=== PATIENT | male | born 1945 | race Caucasian/White ===

== ENCOUNTER 2024-07-11 07:04 | Observation (INO) ==
--- NOTE | 2024-07-11 07:28 | Emergency Department Note ---
Impression & Plan Syncope, Head injury, Cervical strain, acute, Acute thoracic myofascial strain ED Provider Note NAME: JANET CHAVIS AGE: 79 SEX: M : 1945 ARRIVES VIA: Ambulance INFORMANT: Patient, ED PROVIDER(S): Flaquito Slaughter DO CHIEF COMPLAINT: Syncope HPI: The patient is an 79-year-old male who presents to the emergency department for an evaluation of syncope. The patient states he was urinating when he had a syncopal episode. The patient states he fell. He thinks he struck his head and his neck. He is complaining of some upper back pain as well. The patient denies having any nausea or vomiting. He denies having any chest pain. He was having some lower back pain last evening. He has a history of this in the past and took some oxycodone. He did not drink any alcohol. The patient states he just feels weak at this time. He denies having any unilateral weakness ROS: See above HPI for pertinent positives & negatives. A total of 10 systems reviewed and were otherwise negative. PAST MEDICAL HISTORY: See Below PAST SURGICAL HISTORY: See Below FAMILY HISTORY: See Below SOCIAL HISTORY: See Below HOME MEDICATIONS: See Below ALLERGIES: See Below VITALS: See Below PHYSICAL EXAMINATION: GENERAL: Patient is awake alert in no acute distress patient is resting comfortably and showing no signs of anxiety EYES: The conjunctivae are clear. The pupils are round and reactive. EARS, NOSE, MOUTH AND THROAT: The nose is without any evidence of any deformity. NECK: Upper cervical spine tenderness was noted to palpation. Range of motion appears intact. RESPIRATORY: Normal respiratory effort is noted there is no evidence of wheezing rhonchi or rales CARDIOVASCULAR: Regular rate and rhythm noted there no murmurs rubs or gallops normal S1 normal S2. GASTROINTESTINAL: The abdomen is soft. Abdomen is nontender. BACK: The patient has upper thoracic spine tenderness to palpation. Range of motion does appear intact. MUSCULOSKELETAL/EXTREMITIES: There is no evidence of gross deformity full range of motion is noted in the hips and shoulders. SKIN: There is no obvious evidence of any rash. There are no petechiae, pallor or cyanosis noted. NEUROLOGIC: Patient is awake alert and oriented x3 strength was symmetric in both lower extremities. MEDICAL DECISION MAKING: The patient is an 79-year-old male who presented to the emergency department for an evaluation of syncope. The patient had a syncopal episode today. The patient was awake and alert. He is neurologically intact upon arrival. He did have some pain but it appeared to be more consistent with a fall not necessarily other cause. The patient has a history of a dilated aortic root. It was not to the measurement that would need surgical but it could be becoming symptomatic with the patient especially given his syncopal episode. He was up late last night watching a football game. This did occur during micturition. I discussed the patient's laboratory and radiographic studies with him and his significant other. I discussed some of the possible causes for syncope. I do feel the patient would require an echocardiogram. I discussed the possibility that they may have this as an outpatient but ultimately they were not comfortable being discharged home. He did have some changes on his chest x-ray which may make him higher risk for outpatient workup for this reason I discussed his condition with the on-call [facility] hospitalist. Triage Nursing notes reviewed. Prior medical records reviewed Vital Signs: reviewed and remarkable for no significant abnormalities Differential diagnosis: Vasovagal event, dehydration, infection, hypoglycemia, electrolyte abnormalities, cardiac sources, intracerebral event, pulmonary embolism, seizure, toxicologic, neurologic, as well as other pathologies. ER treatment provided: See below Diagnostics interpreted by me: ECG: EKG was obtained in the emergency department. My interpretation is sinus bradycardia with first-degree AV block at 55 bpm. There is no ectopy. There is no acute ST segment abnormalities noted. This was compared to a tracing from March 12, 2016. No changes were noted. Cardiac Monitoring: An order was placed for continuous cardiac monitoring. The monitor shows a rate of 60 bpm with sinus rhythm. Laboratory studies: As stated above and show below. Imaging studies: See below. Radiographic imaging was reviewed by myself Consultation(s): [facility]. Past Med/Surg History Problem List (Updated 07/11/24 @ 12:53 by Flaquito Slaughter DO) Acute thoracic myofascial strain (Acute) Cervical strain, acute (Acute) Head injury (Acute) Syncope (Acute) Postlaminectomy syndrome of lumbar region Hip bursitis, left IT band syndrome Right knee DJD Medical History Spinal cord stimulator status HTN (hypertension) Per [facility] cardio records Dyslipidemia Ascending aortic aneurysm CT chest 03/2024: Aneurysmal dilatation of the thoracic aorta, 4.8 cm Follows with [facility] cardio Prostate cancer Dx 2002, s/p prostatectomy, XRT 2007 Surgical History S/P insertion of brain-responsive neurostimulation device SCS 2020 History of esophagogastroduodenoscopy (EGD) Hx of colonoscopy History of total left knee replacement 2009 S/P prostatectomy Social History Smoking Status: Former smoker Tobacco Type: Cigarettes Second Hand Exposure: No; Do You Dip or Chew Tobacco: No; Hx Alcohol Use: Yes Hx Substance Use: No Preferred Language: Kyrgyz Communication Ability: Effective Pie Maker Required: No Beliefs That Will Affect Care: None Current Living Situation: Spouse Feels Safe at Home: Yes Assistive Devices: Denture - Upper, Denture - Lower and Glasses Allergies Allergies Allergy/AdvReac Type Severity Reaction Status Date / Time Penicillins Allergy Mild Hives Verified 07/11/24 08:38 Home Meds Home Medications Medication Instructions Recorded Confirmed coenzyme Q10 100 mg capsule 100 mg PO QAM 06/02/19 07/11/24 (CoQ-10) losartan 25 mg tablet 25 mg PO QAM 06/02/19 07/11/24 magnesium 200 mg tablet 200 mg PO HS 09/01/19 07/11/24 metoprolol succinate 25 mg capsule 12.5 mg PO QAM 09/01/19 07/11/24 sprinkle, ext. release 24 hr aspirin 81 mg capsule 81 mg PO QAM 04/18/24 07/11/24 calcium 600 mg (as 2 tab PO QPM 04/18/24 07/11/24 carbonate)-vitamin D3 5 mcg (200 unit) tablet lactobacillus combination no.4 3 3,000 mmu cells PO DAILY ##0 04/18/24 07/11/24 billion cell capsule (Probiotic) rosuvastatin 10 mg tablet 10 mg PO HS 04/18/24 07/11/24 oxycodone-acetaminophen 5 mg-325 1 tab PO Q6H PRN Pain 07/11/24 07/11/24 mg tablet Results & Data (ED) Vital Signs Vital Signs - 24 hr 07/11/24 07:08 07/11/24 07:08 07/11/24 07:13 Temperature 36.6 C Temperature Source Oral Pulse Rate 55 L 55 L 54 L Pulse Rhythm Regular Regular Pulse Strength Normal Respiratory Rate 14 14 14 Respiratory Effort / Characteristics Non-Labored Respiratory Depth Normal Respiratory Pattern Regular Blood Pressure 156/75 H 156/75 H Blood Pressure Mean 102 102 Pulse Oximetry 100 100 100 Oxygen Delivery Method Room Air Room Air Room Air Sepsis Recent Fever Within 48 Hours No Sepsis New/Unexplained Change in Mental Status N/A Sepsis Action Taken by Nursing No Action Required 07/11/24 07:25 07/11/24 08:03 07/11/24 08:18 Temperature Temperature Source Pulse Rate 54 L 62 56 L Pulse Rhythm Regular Pulse Strength Respiratory Rate 14 18 Respiratory Effort / Characteristics Respiratory Depth Respiratory Pattern Blood Pressure 141/77 H Blood Pressure Mean 109 Pulse Oximetry 99 96 Oxygen Delivery Method Room Air Sepsis Recent Fever Within 48 Hours Sepsis New/Unexplained Change in Mental Status Sepsis Action Taken by Nursing 07/11/24 09:30 07/11/24 10:02 Temperature Temperature Source Pulse Rate 55 L 60 Pulse Rhythm Pulse Strength Respiratory Rate 12 18 Respiratory Effort / Characteristics Respiratory Depth Respiratory Pattern Blood Pressure 127/73 140/86 Blood Pressure Mean 112 112 Pulse Oximetry 96 96 Oxygen Delivery Method Sepsis Recent Fever Within 48 Hours Sepsis New/Unexplained Change in Mental Status Sepsis Action Taken by [facility] Medications Current Medication List: was personally reviewed by me Laboratory Data Attestation: I reviewed the patient's lab results. 07/11/24 07:20 07/11/24 07:20 Lab Results 07/11/24 07/11/24 Range/Units 07:20 08:51 WBC 5.48 (4.8-10.8) K/ul RBC 4.41 L (4.70-6.10) M/uL Hgb 13.1 L (14.0-18.0) g/dl Hct 38.6 L (42.0-52.0) % MCV 87.5 (80.0-100.0) fL MCH 29.7 (25.0-34.0) pg MCHC 33.9 (32.0-36.0) g/dL RDW Std Deviation 41.2 (36.4-46.3) fL RDW Coeff of Toro 12.8 (11.5-14.5) % Plt Count 229 (130-400) K/uL MPV 8.9 L (9.4-12.4) fL Immature Gran % (Auto) 0.4 % Neut % (Auto) 50.5 % Lymph % (Auto) 36.3 % [place] % (Auto) 9.9 % Eos % (Auto) 2.0 % Baso % (Auto) 0.9 % Neut # (Auto) 2.77 (1.40-6.50) K/uL Lymph # (Auto) 1.99 (1.20-3.40) K/uL [place] # (Auto) 0.54 (0.11-0.59) K/uL Eos # (Auto) 0.11 (0.00-0.50) K/uL Baso # (Auto) 0.05 (0.00-0.20) K/uL Immature Gran # (Auto) 0.02 (0.01-0.20) K/uL PT 11.0 (9.0-12.0) Seconds INR 1.0 (0.9-1.1) APTT 25 (21-31) Seconds PTT Ratio 0.9 Sodium 140 (136-145) mmol/L Potassium 3.8 (3.5-5.1) mmol/L Chloride 105 (98-107) mmol/L Carbon Dioxide 28 (21-32) mmol/L Anion Gap 7 (3-11) BUN 18 (6-23) mg/dl Creatinine 0.94 (0.6-1.4) mg/dl Est Cr Clr Drug Dosing 74.2 ml/min eGFR 81.95 BUN/Creatinine Ratio 19.1 (10-20) Glucose 103 H (70-99(Fasting)) mg/dl Calcium 9.3 (8.6-10.3) mg/dl Magnesium 2.1 (1.7-2.4) mg/dl Total Bilirubin 0.5 (0.2-1.0) mg/dl AST 16 (13-39) U/L ALT 10 (7-52) U/L Alkaline Phosphatase 58 (34-104) U/L Troponin I High Sens 4.2 (0-20) pg/ml Total Protein 6.9 (6.0-8.3) gm/dl Albumin 4.3 (3.4-5.0) gm/dl Globulin 2.6 (2.5-4.0) gm/dl Albumin/Globulin Ratio 1.7 (0.9-2) Urine Color Yellow Urine Appearance Clear (Clear) Urine pH 7.5 (4.5-7.5) Ur Specific Mccarr 1.008 (1.000-1.030) Urine Protein Negative (Negative) Urine Glucose (UA) Negative (Negative) Urine Ketones Negative (Negative) Urine Blood Negative (Negative) Urine Nitrite Negative (Negative) Urine Bilirubin Negative (Negative) Urine Urobilinogen Negative (Negative) Ur Leukocyte Esterase Negative (Negative) Imaging Data Attestation: I personally reviewed and interpreted this imaging study as follows: My Impression: CT the brain was obtained in the emergency department. My interpretation is no intracranial hemorrhage or mass effect, final report below. 1 view chest x-ray was obtained in the emergency department. My interpretation is no free air or definite filtrate, final report below. Radiologist's Impression: Cervical Spine CT 07/11/24 07:19 CT OF THE CERVICAL SPINE WITHOUT CONTRAST CLINICAL HISTORY: fall COMPARISON STUDY: Cervical spine CT September 14, 2020. TECHNIQUE: Helical axial images of the cervical spine were obtained without IV contrast. Sagittal and coronal reconstructions were viewed. Automated exposure control was utilized for the study. A dose lowering technique was utilized adhering to the principles of ALARA. FINDINGS: Alignment of the cervical spine is anatomic. Vertebral body heights are maintained. No acute cervical spine fracture or subluxation is present. There is no prevertebral edema. Facet joints are intact. The inferior aspect of C7 is not well-visualized on this exam but is visualized on the thoracic spine CT. There is no fracture within the thoracic spine. Moderate multilevel disc space narrowing, endplate osteophytosis and facet arthrosis is present. There are moderate degenerative changes at the C1-C2 articulation. IMPRESSION: No acute cervical spine fracture or subluxation. ACT 112: Negative or not required by law. Electronically signed by: Pro Steele M.D. 07/11/2024 8:27 AM Chest X-Ray 07/11/24 07:19 EXAM: XR chest 1V portable CLINICAL HISTORY: FALL-RIGHT SHOULDER PAIN JMT TECHNIQUE: An X-ray image of the chest is obtained in AP projection. COMPARISON: No prior studies are available for comparison. FINDINGS: Pulmonary Parenchyma: Slight prominence of bronchovascular markings was noted bilaterally. Findings could be related to mild pulmonary congestion. No focal consolidation. No evidence of pleural effusion or pneumothorax. Heart and Mediastinum: Borderline cardiomegaly. No mediastinal widening or masses. No hilar or mediastinal lymphadenopathy. Bony Thorax: The bony thorax appears intact without acute fractures or deformities. Soft Tissues: Soft tissues overlying the chest wall are unremarkable. A thoracic spinal stimulator was observed. IMPRESSION: 1. Slight prominence of bronchovascular markings was noted bilaterally. Findings could be related to mild pulmonary congestion. Would recommend clinical correlation. 2. Borderline cardiomegaly. Electronically signed by Luis A Ch 07-11-2024 08:[address] 07/11/24 07:19 CT head/brain wo con CLINICAL HISTORY: syncope. TECHNIQUE: Multiple axial CT images of the head were obtained without contrast. A dose lowering technique was utilized adhering to the principles of ALARA. COMPARISON: 09/14/2020 FINDINGS: There are stable mild globus pallidus calcifications, unremarkable in this age group. No intracranial hemorrhage seen. No mass effect, midline shift, or hydrocephalus. No skull fracture seen. Visualized paranasal sinuses and mastoid air cells are clear. IMPRESSION: No acute findings. ACT 112: Negative or not required by law. The above report was generated using voice recognition software. It may contain grammatical, syntax or spelling errors. Electronically signed by: Tex Suarez M.D. 07/11/2024 8:27 AM Shoulder X-Ray 07/11/24 07:19 EXAM: XR shoulder RT min 2V routine CLINICAL HISTORY: FALL-RIGHT SHOULDER PAIN JMT TECHNIQUE: X-ray images of the right shoulder were obtained in anteroposterior (AP) and Y-view projections. COMPARISON: No prior studies available for comparison. FINDINGS: Bone Structure: Reduced mineralization of the imaged bony structures seen suggests osteopenia. Focal calcific density seen near the greater tuberosity of the humerus likely suggests calcific tendinitis of the supraspinatus tendon, avulsion fracture fragment appears less likely. Bone structure is normal and aligned. No evidence of fracture or dislocation. Humeral head is properly positioned in the glenoid fossa. No convincing rib fracture seen Joint Spaces: Tiny marginal osteophytes seen at the glenoid or scapula with patchy sclerosis at the superior lateral surface of head of humerus, overall represents mild degenerative changes. Glenohumeral spaces are normal. No evidence of joint effusion or subluxation. Small marginal osteophyte seen at the acromioclavicular joint suggesting Acromioclavicular arthropathy within adjacent ossific body, avulsed fracture fragment less likely. Soft Tissues: No soft tissue swelling seen. IMPRESSION: 1. Glenohumeral and acromioclavicular arthropathy/degenerative changes seen, as described above. 2. No acutely displaced fracture noted. 3. Supraspinatus calcific tendinitis and acromioclavicular degenerative loose body seen, avulsed fracture fragments at these sites appear unlikely. 4. Osteopenia. 5. Clinical correlation advised, further evaluation by CT scan/MRI right shoulder may be obtained if clinically indicated. Disclaimer: A subtle bone abnormality or fracture may not be readily apparent on X-rays, thus clinical correlation and further imaging including follow-up CT, MRI, or follow-up X-rays are advised as needed. Electronically signed by Luis A Ch 07-11-2024 08:[address] 07/11/24 07:22 CT thoracic spine wo con HISTORY: 79 years-old Male fall acute mid back pain status post fall COMPARISON: Chest radiograph of same day, MRI thoracic spine 12/11/2012 TECHNIQUE: Multiple axial CT images of the thoracic spine were obtained without IV contrast. A dose lowering technique was used consistent with the principals of ALARA. FINDINGS: [id number] multilevel intervertebral disc space narrowing with moderate anterior bridging osteophytosis and [id number] facet arthrosis. Partially imaged neurostimulator leads appear intact and are seen entering the central canal at T8-T9 with distal tip terminating at T6-T7. No acute fracture, subluxation or endplate erosion. Suboptimal evaluation of the central canal and neural foramen by CT technique. No high-grade central canal stenosis identified. No paravertebral edema. Nonobstructing right nephrolithiasis. Cardiomegaly with extensive coronary artery calcifications. The imaged lung morris are generally clear. Mild pleural parenchymal scarring of the lung apices. Mild pulmonary emphysema with bronchial wall thickening. Mild fusiform dilation of the ascending thoracic aorta measures up to 4 cm. IMPRESSION: No acute thoracic spine fracture or subluxation identified. ACT 112: Negative or not required by law. The above report was generated using voice recognition software. It may contain grammatical, syntax or spelling errors. Electronically signed by: Satish Christianson M.D. 07/11/2024 8:41 AM Discharge Plan Visit Data Chief Complaint: Syncope (Near Syncope) Stated Complaint: NEAR SYNCOPE, WEAKNESS, DIZZINESS ED Provider: Flaquito Slaughter Discharge Problem: Syncope, Head injury, Cervical strain, acute, Acute thoracic myofascial strain Patient Disposition: Being Evaluated by Hospitalist Forms Stand Alone Forms: [facility] Prescriptions Prescriptions: No Action metoprolol succinate 25 mg capsule,sprinkle,ER 24hr 12.5 mg PO QAM magnesium 200 mg tablet 200 mg PO HS losartan 25 mg tablet 25 mg PO QAM coenzyme Q10 [CoQ-10] 100 mg capsule 100 mg PO QAM calcium carbonate-vitamin D3 600 mg-5 mcg (200 unit) Tablet 2 tab PO QPM Patient Comments: @noon rosuvastatin 10 mg Tablet 10 mg PO HS Probiotic 3 billion cell Capsule 3,000 mmu cells PO DAILY Qty: 0 Rx Instructions: administer with a meal aspirin 81 mg Capsule 81 mg PO QAM oxycodone-acetaminophen 5-325 mg tablet 1 tab PO Q6H PRN (Reason: Pain) Referrals Referrals: Guido Anne DO [Primary Care Provider] - Discharge Problem: Syncope Qualifiers: Syncope type: unspecified Qualified Code(s): R55 - Syncope and collapse Head injury Qualifiers: Encounter type: initial encounter Qualified Code(s): S09.90XA - Unspecified injury of head, initial encounter Cervical strain, acute Qualifiers: Encounter type: initial encounter Qualified Code(s): S16.1XXA - Strain of muscle, fascia and tendon at neck level, initial encounter Acute thoracic myofascial strain Qualifiers: Encounter type: initial encounter Qualified Code(s): S29.019A - Strain of muscle and tendon of unspecified wall of thorax, initial encounter
[2024-07-11 07:57] LABS: Basophils # (auto) 0.05 K/uL (0.00-0.20); Basophils % (auto) 0.9 %; Eosinophils # (auto) 0.11 K/uL (0.00-0.50); Hematocrit (blood only) 38.6 % (42.0-52.0); Hemoglobin 13.1 g/dl (14.0-18.0); Immature Granulocytes # (auto) 0.02 K/uL (0.01-0.20); Immature Granulocytes % (auto) 0.4 %; Lymphocytes # (auto) 1.99 K/uL (1.20-3.40); Lymphocytes % (auto) 36.3 %; Mean Corpuscular Hemoglobin 29.7 pg (25.0-34.0); Mean Corpuscular Hgb Conc 33.9 g/dL (32.0-36.0); Mean Corpuscular Volume 87.5 fL (80.0-100.0); Mean Platelet Volume 8.9 fL (9.4-12.4); Monocytes # (auto) 0.54 K/uL (0.11-0.59); Monocytes % (auto) 9.9 %; Neutrophils # (auto) 2.77 K/uL (1.40-6.50); Neutrophils % (auto) 50.5 %; Platelet Count 229 K/uL (130-400); RDW Coefficient of Variation 12.8 % (11.5-14.5); RDW Standard Deviation 41.2 fL (36.4-46.3); Red Blood Count 4.41 M/uL (4.70-6.10); White Blood Count 5.48 K/ul (4.8-10.8)
[2024-07-11 08:03] LABS: Albumin Globulin Ratio 1.7 (0.9-2); Albumin Level 4.3 gm/dl (3.4-5.0); BUN Creatinine Ratio 19.1 (10-20); Bilirubin,Total 0.5 mg/dl (0.2-1.0); Calcium 9.3 mg/dl (8.6-10.3); Creatinine Clr Calc Pharmacy 74.2 ml/min; Globulin 2.6 gm/dl (2.5-4.0); Magnesium 2.1 mg/dl (1.7-2.4); Potassium 3.8 mmol/L (3.5-5.1); Total Protein 6.9 gm/dl (6.0-8.3)
[2024-07-11 08:08] LABS: Troponin I High Sensitivity 4.2 pg/ml (0-20)
[2024-07-11 08:18] LABS: Partial Thromboplastin Ratio 0.9; Partial Thromboplastin Time 25 Seconds (21-31)
--- NOTE | 2024-07-11 08:28 | CT Scan Report ---
CT head/brain wo con CLINICAL HISTORY: syncope. TECHNIQUE: Multiple axial CT images of the head were obtained without contrast. A dose lowering tech nique was utilized adhering to the principles of ALARA. COMPARISON: 09/14/2020 FINDINGS: There are stable mild globus pallidus calcifications, unremarkable in this age group. No in tracranial hemorrhage seen. No mass effect, midline shift, or hydrocephalus. No skull fracture seen. Visualized paranasal sinuses and mastoid air cells are clear. IMPRESSION: No acute findings. ACT 112: Negative or not required by law. The above report was generated using voice recognition software. It may contain grammatical, syntax o r spelling errors. Electronically signed by: Tex Suarez M.D. 07/11/2024 8:27 AM
--- NOTE | 2024-07-11 08:28 | CT Scan Report ---
CT OF THE CERVICAL SPINE WITHOUT CONTRAST CLINICAL HISTORY: fall COMPARISON STUDY: Cervical spine CT September 14, 2020. TECHNIQUE: Helical axial images of the cervical spine were obtained without IV contrast. Sagittal a nd coronal reconstructions were viewed. Automated exposure control was utilized for the study. A do se lowering technique was utilized adhering to the principles of ALARA. FINDINGS: Alignment of the cervical spine is anatomic. Vertebral body heights are maintained. No acut e cervical spine fracture or subluxation is present. There is no prevertebral edema. Facet joints are intact. The inferior aspect of C7 is not well-visualized on this exam but is visualized on the [facility] spine CT. There is no fracture within the thoracic spine. Moderate multilevel disc space narrowin g, endplate osteophytosis and facet arthrosis is present. There are moderate degenerative changes at the C1-C2 articulation. IMPRESSION: No acute cervical spine fracture or subluxation. ACT 112: Negative or not required by law. Electronically signed by: Pro Steele M.D. 07/11/2024 8:27 AM
--- NOTE | 2024-07-11 08:31 | XRay Report ---
EXAM: XR chest 1V portable CLINICAL HISTORY: FALL-RIGHT SHOULDER PAIN JMT TECHNIQUE: An X-ray image of the chest is obtained in AP projection. COMPARISON: No prior studies are available for comparison. FINDINGS: Pulmonary Parenchyma: Slight prominence of bronchovascular markings was noted bilaterally. Findings could be related to mild pulmonary congestion. No focal consolidation. No evidence of pleural effusion or pneumothorax. Heart and Mediastinum: Borderline cardiomegaly. No mediastinal widening or masses. No hilar or mediastinal lymphadenopathy. Bony Thorax: The bony thorax appears intact without acute fractures or deformities. Soft Tissues: Soft tissues overlying the chest wall are unremarkable. A thoracic spinal stimulator was observed. IMPRESSION: 1. Slight prominence of bronchovascular markings was noted bilaterally. Findings could be related to mild pulmonary congestion. Would recommend clinical correlation. 2. Borderline cardiomegaly. Electronically signed by Luis A Ch 07-11-2024 08:30 AM
--- NOTE | 2024-07-11 08:32 | XRay Report ---
EXAM: XR shoulder RT min 2V routine CLINICAL HISTORY: FALL-RIGHT SHOULDER PAIN JMT TECHNIQUE: X-ray images of the right shoulder were obtained in anteroposterior (AP) and Y-view projections. COMPARISON: No prior studies available for comparison. FINDINGS: Bone Structure: Reduced mineralization of the imaged bony structures seen suggests osteopenia. Focal calcific density seen near the greater tuberosity of the humerus likely suggests calcific tendinitis of the supraspinatus tendon, avulsion fracture fragment appears less likely. Bone structure is normal and aligned. No evidence of fracture or dislocation. Humeral head is properly positioned in the glenoid fossa. No convincing rib fracture seen Joint Spaces: Tiny marginal osteophytes seen at the glenoid or scapula with patchy sclerosis at the superior lateral surface of head of humerus, overall represents mild degenerative changes. Glenohumeral spaces are normal. No evidence of joint effusion or subluxation. Small marginal osteophyte seen at the acromioclavicular joint suggesting Acromioclavicular arthropathy within adjacent ossific body, avulsed fracture fragment less likely. Soft Tissues: No soft tissue swelling seen. IMPRESSION: 1. Glenohumeral and acromioclavicular arthropathy/degenerative changes seen, as described above. 2. No acutely displaced fracture noted. 3. Supraspinatus calcific tendinitis and acromioclavicular degenerative loose body seen, avulsed fracture fragments at these sites appear unlikely. 4. Osteopenia. 5. Clinical correlation advised, further evaluation by CT scan/MRI right shoulder may be obtained if clinically indicated. Disclaimer: A subtle bone abnormality or fracture may not be readily apparent on X-rays, thus clinical correlation and further imaging including follow-up CT, MRI, or follow-up X-rays are advised as needed. Electronically signed by Luis A Ch 07-11-2024 08:31 AM
--- NOTE | 2024-07-11 08:42 | CT Scan Report ---
CT thoracic spine wo con HISTORY: 79 years-old Male fall acute mid back pain status post fall COMPARISON: Chest radiograph of same day, MRI thoracic spine 12/11/2012 TECHNIQUE: Multiple axial CT images of the thoracic spine were obtained without IV contrast. A dose l owering technique was used consistent with the principals of VIKASH. FINDINGS: Hfta-pd-bhhdverf multilevel intervertebral disc space narrowing with moderate anterior bridging osteo phytosis and twwh-sl-tbwquccu facet arthrosis. Partially imaged neurostimulator leads appear intact a nd are seen entering the central canal at T8-T9 with distal tip terminating at T6-T7. No acute fractu re, subluxation or endplate erosion. Suboptimal evaluation of the central canal and neural foramen by CT technique. No high-grade central canal stenosis identified. No paravertebral edema. Nonobstructing right nephrolithiasis. Cardiomegaly with extensive coronary artery calcifications. The imaged lung morris are generally clear. Mild pleural parenchymal scarring of the lung apices. Mild p ulmonary emphysema with bronchial wall thickening. Mild fusiform dilation of the ascending thoracic a hipolito measures up to 4 cm. IMPRESSION: No acute thoracic spine fracture or subluxation identified. ACT 112: Negative or not required by law. The above report was generated using voice recognition software. It may contain grammatical, syntax o r spelling errors. Electronically signed by: Satish Christianson M.D. 07/11/2024 8:41 AM
--- OUTSIDE RECORDS SUMMARY | 2024-07-11 09:07 | External Medical Summary | Summary of Care ---
Author Name Unknown Organization [facility] Address [address] [place] [address] Phone [phone] Care Team Providers Care [employer] Operator Name Role Phone TjdeanGuido DO Primary Care Provider Reason for Visit * Reason Comments Outpatient Testing Encounter Details Date Type Department Care Team (Late st Contact Info) Description 06/18/2024 8:50 AM EST Laboratory Laboratory, [facility] [address] [place] [phone] [facility] [address] [place] [address] Prediabetes Allergies Active Allergy Reactions Criticality Noted Date Comments Adhesive Tape Rash 01/03/2018 Penicillins 04/21/2004 Hives documented as of this encounter (statuses as of 06/18/2024) Medications CALCIUM 600-D 600-400 MG-UNIT PO TABS 2 tablets daily; unsure of dosage 0 Active ASPIRIN 81 MG PO CHEW One pill by mouth once a day with food Active Coenzyme Q10 (COQ-10) 100 MG CAPS Take 100 mg by mouth daily. 7 Active Probiotic Daily Oral Capsule Take 1 Capsule by mouth in the morning. Active Losartan Potassium 25 MG Oral Tablet (Cozaar)Indications :Essential hypertension with goal blood pressure less than 140/90,Aneurysm of ascending aorta without rupture (HCC) TAKE ONE TABLET BY MOUTH EVERY MORNING 90 Tablet 3 06/09/2024 4:02 PM EST 4 09/17/19 25 Active Gabapentin 300 MG Oral Capsule (Neurontin)Indicati ons:Spinal stenosis of lumbar region without neurogenic claudication,Periph eral polyneuropathy Take 1 Capsule by mouth in the morning and 1 Capsule at noon and 1 Capsule before bedtime. 300 Capsule 3 05/01/2024 2:53 PM EDT 4 Active Metoprolol Succinate ER 25 MG Oral Tablet Extended Release 24 Hour (toPROL XL)Indications:Esse ntial hypertension with goal blood pressure less than 140/90,Aneurysm of ascending aorta without rupture (HCC),Palpitations TAKE ONE-HALF TABLET BY MOUTH IN THE MORNING 50 Tablet 3 05/01/2024 2:25 PM EDT 4 11/05/19 25 Active Chlorhexidine Gluconate 0.12 % Mouth/Throat Solution (Periogard) RINSE AND SWISH 15ML 1-2 TIMES DAILY FOR 1 MINUTE THEN SPIT OUT. 4 Active Cyclobenzaprine HCl 10 MG Oral TabletIndications:S cristiano stenosis of lumbar region without neurogenic claudication Take 1 Tablet by mouth 3 times a day as needed for Muscle spasms. 60 Tablet 3 4 Active Rosuvastatin Calcium 10 MG Oral Tablet (Crestor)Indication s:Dyslipidemia, goal LDL below 100 Take 1 Tablet by mouth at bedtime. 30 Tablet 11 03/31/2024 4:58 PM EDT 4 Active oxyCODONE-Acetamino phen 5-325 MG Oral Tablet (Percocet)Indicatio ns:Spinal stenosis of lumbar region without neurogenic claudication,S/P lumbar laminectomy Take 1 Tablet by mouth every 6 hours as needed for Pain, Severe. 30 Tablet 4 Active DULoxetine HCl 20 MG Oral Capsule Delayed Release Particles (Cymbalta)Indicatio ns:Mixed sensory-motor polyneuropathy Take 1 Capsule by mouth in the morning. Do not cut, crush or chew. 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 Coronary artery calcification 08/23/2021 Prediabetes 01/12/2020 Overview: Per Prediabetes protocol Bradycardia, sinus 01/16/2018 S/P lumbar laminectomy 01/03/2018 Spinal stenosis of lumbar re gion with neurogenic claudication 12/19/2017 Neural foraminal stenosis of lumbar spine 2017 Lumbar radicular pain 07/26/2017 Upper airway cough syndrome 07/24/2017 HTN, goal below 140/90 06/29/2016 Aneurysm of ascending aorta 04/20/2016 Dyslipidemia, goal LDL below 100 04/11/2016 Santana angioma 02/10/2013 Insomnia 10/18/2010 Overview (04/02/2017): ICD-10 update of inactive term KNEE JOINT REPLACEMENT STATUS- Left 09/22/2009 History of prostate cancer 05/02/2003 Cancer Staging:Clinical stage from 05/28/2013:Stage IV(T1c, N0, M1b) - Signed by David Newton MD on 05/28/2013 Pathologic:Stage IV(T2c, N0, M1) - Signed by David Newton MD on 05/28/2013 documented as of this encounter (statuses as of 06/18/2024) Resolved Problems Problem Noted Date Diagnosed Date Resolved Date Peripheral polyneuropathy 07/19/2023 Anemia 12/19/2017 04/15/2018 Right sided abdominal pain 12/19/2017 0 01/03/2018 History of surgical procedure 12/19/2017 01/03/2018 Ascending aorta enlargement 03/15/2016 04/20/2016 Inflamed seborrheic keratosis 02/10/2013 04/15/2018 Other seborrheic keratosis 02/10/2013 1 Cutaneous skin tags 02/10/2013 04/15/20 MEDICATION USE AGREEMENT 12/20/201209/2020 Overview (12/20/2012): Managed by Guido Anne DO. To view the Medication Usage Agreement, go to Action, Patient Files. Lumbosacral neuritis 11/18/2012 018 Annular tear of lumbar disc 05/20/2012 06/17/2018 [id number] Clinical Trial [id number] 04/12/2011 07/09/2013 Overview (04/12/2011): Trial participant as of: [facility] [id number]: A Randomized, Phase III Study of Standard Dosing Versus Longer Dosing Interval of Zoledronic Acid in Metastatic Cancer Project #: [id number] PI Name: David Newton MD PI CRC Name: Monique Alfred [facility] Contact PI or PACK PULLER regarding any serious medical event, ER visit, hospitalization, if new Rx given, or billing question [id number] Clinical Trial [id number] 04/12/2011 08/13/2013 Overview: Renamed per the Centers for Medicare and Medicaid billing requirements to include Clinical Trial.gov number. Trial participant as of: [facility] [id number]: A Randomized, Phase III Study of Standard Dosing Versus Longer Dosing Interval of Zoledronic Acid in Metastatic Cancer Project #: [id number] PI Name: David Newton MD PI CRC Name: Monique Alfred [facility] Contact PI or PACK PULLER regarding any serious medical event, ER visit, hospitalization, if new Rx given, or billing question [id number] Clinical Trial*[id number] 01/05/2011 04/12/2011 Overview (01/05/2011): Trial participant as of: [facility] [id number]: A Randomized, Phase III Study of Standard Dosing Versus Longer Dosing Interval of Zoledronic Acid in Metastatic Cancer Project #: [id number] PI Name: David Newton MD PI CRC Name: Monique Alfred [facility] Contact PI or PACK PULLER regarding any serious medical event, ER visit, hospitalization, if new Rx given, or billing question Secondary malignant neoplasm of bone 01/04/2011 10/15/2023 NONALLERGIC RHINITIS 06/07/2006 018 Cough 06/07/2006 06/17/2018 Spinal stenosis, cervical region 05/18/2006 12/19/2017 Esophageal reflux 12/15/2005 11/25/2019 documented as of this encounter (statuses as of 06/18/2024) Immunizations Name Administration Dates Next Due COVID-19 mRNA, LNP-s, No Pre serve, 2-Dose Series (Moderna) 08/30/2020,07/26/2020 COVID-19, MRNA-LNP, PF, 30 M CG/0.3 mL, 12 YRS AND ABOVE, IM (PFIZER-Comirnaty) 04/07/2024,12/26/2023 COVID-19, MRNA-LNP, PF, 50 M CG/0.5 mL, 12 YRS AND ABOVE, IM (MODERNA-Spikevax) 04/13/2023 COVID-19, mRNA, LNP-s, PF, B ooster, 100mcg/0.5mg (Moderna) 10/26/2021,05/10/2021 Covid-19, Mrna, Lnp-s, Pf, B ivalent, 30 Mcg, IM, 12 yrs and above (Pfizer) 05/16/2022 Pneumococcal Conjugate Vacc, 13 Valent (Prevnar) 01/12/2015 Pneumococcal Conjugate Vacci ne, 7 Valent 09/19/2007 Pneumococcal Polysaccharide PPV23 (Pneumovax) 03/28/2010 RSV Vac., Recomb, Adjuvant, PF,0.5 Ml (Arexvy) 04/07/2024 Season Influenza, Quad, PF, Adjuvanted, 65+ Yrs, IM (FLUAD) 03/05/2020 Seasonal Influenza Vac., MDV , IM, 0.5 mL (Fluzone) 04/01/2015,03/09/2014,03/18/2013,05/20,05/01/2011,03/28/2010,03/22/2009 ,04/30/2008,05/30/2007,04/25/2006 Seasonal Influenza, High Dos e, Trivalent, PF, IM (Fluzone HD) 03/04/2024,04/30/2017 Seasonal Influenza, PF, 6 M & above, IM , (FluLaval or Fluzone) 04/15/2018,04/15/2017 Seasonal Influenza, Quadriva lent Hd (Fluzone Hd) 04/03/2023,04/03/2022,03/11/2021 Seasonal Influenza, Quadriva lent, No Preserve, IM 03/15/2016 Seasonal Influenza, Trivalen t, Adjuvanted, 65+ YRS, PF, (Fluad) 04/01/2019 TD, Preservative Free 01/03/2018 TDAP, Age 7 and older, IM (Adacel) 09/19/2007 Varicella Zoster Vaccine (Adult) 12/06/2016 Zoster Vaccine Recombinant (Shingrix) 08/23/2021 ,03/05/2020 documented as of this encounter Social History Tobacco Use Types Packs/Day Years Used Date Smoking Tobacco: Former Cigarettes 1 17 0 07/02/1958 - 07/02/1975 Passive Smoke Exposure: Past Smokeless Tobacco: Never Alcohol Use Standard Drinks/Week Comments Yes 0.8 (1 standard drink = 0.6 oz p ure alcohol) wine on occasion PHQ-2 Answer Date Recorded PHQ Adult Total Score 0 06/10/2023 Hunger Vital Sign Answer Date Recorded Within the past 12 months, y ou worried that your food would run out before you got the money to buy more. Never true 06/10/20 23 Within the past 12 months, t he food you bought just didn't last and you didn't have money to get more. Never true 06/10/2023 Childcare Answer Date Recorded Do you feel overwhelmed with taking care of a child, family member or friend? No 06/10/2023 Does your family need help f inding childcare? (Household - for ages 0-17 years) Not on file 06/10/2023 Clothing Answer Date Recorded Have you been unable to get clothing when it was really needed? No 06/10/2023 Is your family able to get c lothes or diapers when needed? (Household - for ages 0-17 years) Not on file 06/10/2023 Personal Safety Answer Date Recorded Do you feel unsafe or have concerns for your saf ety? No 06/10/2023 Do you have concerns for you r family's safety? (Household - for ages 0-17 years) Not on file 06/10/2023 Utilities Answer Date Recorded Do you have trouble paying y our heating, water, or electric bill? No 06/10/2023 Is your family able to pay t he heat, water, or electric bill? (Household - for ages 0-17 years) Not on file 06/10/2023 Does your family have access to good internet? (Household - for ages 0-17 years) Not on file 06/10/2023 Employment Status Answer Date Recorded Are you unemployed or without regular income? No 06/10/2023 Does the household have a re gular source of income? (Household - for ages 0-17 years) Not on file 06/10/2023 Social Connections Answer Date Recorded How often do you feel lonely or isolated from th ose around you? Never 06/10/2023 Financial Resource Strain Answer Date R ecorded Do you have any trouble payi ng for your medications, or do you think you might in the future? No 06/10/2023 Does your family have troubl e paying for medicine? (Household - for ages 0-17 years) Not on file 06/10/2023 Transportation Needs Answer Date Record ed READ ONLY Do you have troubl e getting a ride to medical visits or work? Never True 06/10/2023 Does your family have a hard time getting a ride to doctors visits? (Household - for ages 0-17 years) Not on file 06/10/2023 Has lack of transportation k ept you from medical appointments, meetings, work, or from getting things needed for daily living? Check all that apply. (Adult - for ages 18 years and over) Not on file 06/10/2023 Do you (or your family) have trouble finding or paying for a ride (transportation)? (Household - for ages 0-17 years) Not on file 06/10/2023 Housing Stability Answer Date Recorded Do you currently live in a s helter or have no steady place to sleep at night? No 06/10/2023 READ ONLY Do you think you a re at risk of becoming homeless? No 06/10/2023 Does your family worry about paying for your home or becoming homeless? (Household - for ages 0-17 years) Not on file 1 08/11/2022 Are you homeless or worried that you might be in the future? (Adult - for ages 18 years and over) Not on file 12/10/202 3 Are you (or your family) ankita eless or worried that you might be in the future? (Household - for ages 0-17 years) Not on file Food Insecurity Answer Date Recorded Do you need food for this week? No 06/10/2023 Are you able to get enough f ood for your family? (Household - for ages 0-17 years) Not on file 06/10/2023 Does your family need food t his week? (Household - for ages 0-17 years) Not on file 06/10/2023 Do you always have enough fo od for your family? 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 Answer Date of Assessment Author No 01/21/2020 2:44 PM EDT Shirley Hess RN * Are you blind or do you have serious difficulty seeing, even when wearing glasses? Answer Date of Assessment Author No 01/21/2020 2:44 PM EDT Shirley Hess RN * Do you have serious difficulty walking or climbing stairs? (5 years old or older) Answer Date of Assessment Author No 01/21/2020 2:44 PM EDT Shirley Hess RN * Do you have difficulty dressing or bathing? (5 years old or older) Answer Date of Assessment Author No 01/21/2020 2:44 PM EDT Shirley Hess RN * Because of a physical, mental, or emotional condition, do you have difficulty doing errands alone such as visiting a doctors office or shopping? (15 years old or older) Answer Date of Assessment Author No 01/21/2020 2:44 PM YESSICAT Shirley Hess RN documented as of this encounter Mental Status * Because of a physical, mental, or emotional condition, do you have serious difficulty concentrating, remembering, or making decisions? (5 years old or older) Answer Entry Date Author No 01/21/2020 2:44 PM EDT Shirley Hess RN documented in this encounter Plan of Treatment Upcoming Encounters Date Type Department Care Team (Late st Contact Info) Description 06/18/2024 10:00 AM EST Nutrition Services Nutrition Services [facility] [address] [place] [address] Kristy Hicks RDN [address] [place] [address] Arrived 02/17/2025 9:20 AM EDT Laboratory Laboratory [facility] [address] [facility] [place] [phone] [place] [address] 02/24/2025 2:00 PM EDT Office Visit Hematology/Oncology [facility] [address] [place] [phone] David Newton MD [address] [facility] [place] [address] 03/11/2025 8:00 AM EDT Imaging Radiology [address] [facility] [place] [address] 03/26/2025 8:00 AM EDT Office Visit Cardiology, [facility] [address] [facility] [place] [address] Germania Velasco CRNP [address] [facility] [place] [address] Pending Results Name Type Priority Associated Diagnoses Date /Time HEMOGLOBIN A1C Lab Routine Prediabetes 06/18/2024 8:49 AM EST Health Maintenance Due Date Last Done Comments Adult Wellness Visit 01/19/2024 01/18/2023 HbA1c 02/25/2025 02/26/2024, 09/30, 06/11/2023, Additional history exists Albumin/Creatinine Ratio 02/27/2025 02/27/2022 GFR 04/21/2025 04/21/2024, 12/01, 06/18/2023, Additional history exists Depression Screening 06/18/2025 06/18/2024, 06/10/20 DTap/Tdap Vaccines (3 - Td or Tdap) 01/04/2028 01/03/2018, 09/19/2007 Pneumococcal Vaccine: 65+ Years Completed 01/12/2015, 03/28/2010 Zoster Vaccines Completed 08/23/2021, 10/2019, 12/06/2016 Influenza Vaccine (FLU shot) Completed 08/2023, 04/03/2023, 04/03/2023, Additional history exists COVID-19 Vaccine Completed 04/07/2024, , 04/13/2023, Additional history exists HPV (Gardasil) Vaccine Aged Out No lo nger eligible based on patient's age to complete this topic Hepatitis B Vaccine Aged Out No longe r eligible based on patient's age to complete this topic MENINGOCOCCAL (MENACTRA/MENVEO) Aged Out No longer eligible based on patient's age to complete this topic documented as of this encounter Medical Devices Implanted Type Area Stave Inspector Device Identifier Shelf Expiration Date Model / Serial / Lot Kit Pulse Generator - [id number] - [id number] Implanted:Qty: 1 on 01/21/2020 by Tex Morgan MD at OR [facility] N/A: Spine Thoracic Triptease 10/14/2021 [id number] / [id number] / Paddle Lead Coveredge - [id number] - [id number] Implanted:Qty: 1 on 01/21/2020 by Tex Morgan MD at OR [facility] N/A: Spine Thoracic Triptease 09/16/2021 [id number] / [id number] / Clik Miranda - [id number] Implanted:Qty: 1 on 01/21/2020 by Tex Morgan MD at OR [facility] N/A: Spine Thoracic [employer] : PAIN MGMT 09/11/2021 [id number] / / [id number] documented as of this encounter Visit Diagnoses Diagnosis Prediabetes Other abnormal glucose documented in this encounter Advance Directives * Full Code (Latest Code Status on File) Date Activated Date Inactivated Comments 01/21/2020 11:32 AM 01/22/2020 2:06 PM This order reflects the patients wishes and were consensually agreed upon. Question Answer Comments Discussion of Advance Directives occurred with: Not Discussed * Full Code Date Activated Date Inactivated Comments 01/21/2020 8:18 AM 01/21/2020 11:32 AM This order reflects the patients wishes and were consensually agreed upon. Question Answer Comments Discussion of Advance Directives occurred with: Not Discussed * Full Code Date Activated Date Inactivated Comments 12/19/2017 7:29 AM 12/20/2017 4:33 PM This order r eflects the patients wishes and were consensually agreed upon. Question Answer Comments Discussion of Advance Directives occurred with: Patient Does the patient have a Living Will? No Does the patient have Health Care Power of Attor angle? 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
--- OUTSIDE RECORDS SUMMARY | 2024-07-11 09:07 | External Medical Summary | Summary of Care ---
Author Name Unknown Organization [facility] Address [address] [place] [address] Phone [phone] Care Team Providers Care Strip Stamp Straightener Name Role Phone Guido Anne DO Primary Care Provider [phone] Reason for Visit * Reason Comments Follow Up Encounter Details Date Type Department Care Team (Late st Contact Info) Description 06/18/2024 8:00 AM EST Office Visit Family Practice [address] [place] [address] [address] [place] [address] Guido Anne DO [address] [place] [address] HTN, goal below 140/90*; Dyslipidemia, goal LDL below 100; Spinal stenosis of lumbar region with neurogenic claudication; Mixed sensory-motor polyneuropathy; Prediabetes; Coronary artery calcification; Aneurysm of ascending aorta without rupture (HCC); History of prostate cancer; Primary insomnia; S/P lumbar laminectomy; Spinal cord stimulator status; Pain in joint of right shoulder Allergies Active Allergy Reactions Criticality Noted Date [...] cut, crush or chew. 30 Capsule 5 Active documented as of this encounter (statuses [...] Annular tear of lumbar disc 05/20/2012 06/17/2018 [id number] Clinical Trial [id number] 04/12/2011 07/09/2013 Overview (04/12/2011): Trial participant as of: [facility] [id number]: A Randomized, Phase III Study of Standard Dosing Versus Longer Dosing Interval of Zoledronic Acid in Metastatic Cancer Project #: [id number] PI Name: David Newton MD PI CRC Name: Monique Alfred [facility] Contact PI or HEALTH INSPECTOR regarding any serious medical event, ER visit, hospitalization, if new Rx given, or billing question [id number] Clinical Trial [id number] 04/12/2011 08/13/2013 Overview: Renamed per the Centers for Medicare and Medicaid billing requirements to include Clinical Trial.gov number. Trial participant as of: [facility] [id number]: A Randomized, Phase III Study of Standard Dosing Versus Longer Dosing Interval of Zoledronic Acid in Metastatic Cancer Project #: [id number] PI Name: David Newton MD PI CRC Name: Monique Alfred [facility] Contact PI or HEALTH INSPECTOR regarding any serious medical event, ER visit, hospitalization, if new Rx given, or billing question [id number] Clinical Trial*[id number] 01/05/2011 04/12/2011 Overview (01/05/2011): Trial participant as of: [facility] [id number]: A Randomized, Phase III Study of Standard Dosing Versus Longer Dosing Interval of Zoledronic Acid in Metastatic Cancer Project #: [id number] PI Name: David Newton MD PI [facility] Name: Monique Alfred [facility] Contact PI or HEALTH INSPECTOR regarding any serious medical event, ER visit, [...] 18 years and over) Not on file Are you (or your family) ankita eless [...] 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 Answer Date of Assessment Author No 01/21/2020 2:44 PM EDT Shirley Hess, RN * Are you blind or do [...] Entry Date Author No 01/21/2020 2:44 PM YESSICAT Shirley Hess RN documented in this encounter Progress Notes * Guido Anne, - 06/18/2024 8:35 AM EST SUBJECTIVE: Marc Oh is a 79 year old male. Chief Complaint Patient presents with Follow Up HPI: Patient is an 79 year old male with a history of Prostate Cancer, GERD, Cervical Spinal Stenosis, Lumbar Disc Disease, Prediabetes,Lumbar Laminectomy x 2, Spinal Cord Stimulator Implant, HTN, Prediabetes, Thoracic Aortic Aneurysm, and Peripheral Neuropathy that is seen for follow up.No chest pain or shortness of breath is present. Weight is down 20 pounds with diet. Bilateral neuropathic pain is present at night. He fell off and 8 foot ladder 2 weeks ago and injured his right shoulder. SHoulderpain has not improved. Patient Active Problem List Diagnosis History of prostate cancer KNEE JOINT REPLACEMENT STATUS- Left Insomnia Santana angioma Dyslipidemia, goal LDL below 100 Aneurysm of ascending aorta (HCC) HTN, goal below 140/90 Upper airway cough syndrome Spinal stenosis of lumbar region with neurogenic claudication Lumbar radicular pain Neural foraminal stenosis of lumbar spine S/P lumbar laminectomy Bradycardia, sinus Prediabetes Coronary artery calcification Mixed sensory-motor polyneuropathy Spinal cord stimulator status Current Outpatient Medications Medication Sig Dispense Refill CALCIUM 600-D 600-400 MG-UNIT PO TABS 2 tablets daily; unsure of dosage ASPIRIN 81 MG PO CHEW One pill by mouth once a day with food Coenzyme Q10 (COQ-10) 100 MG CAPS Take 100 mg by mouth daily. Probiotic Daily Oral Capsule Take 1 Capsule by mouth in the morning. Losartan Potassium 25 MG Oral Tablet (Cozaar) TAKE ONE TABLET BY MOUTH EVERY MORNING 90 Tablet 3 Gabapentin 300 MG Oral Capsule (Neurontin) Take 1 Capsule by mouth in the morning and 1 Capsule at noon and 1 Capsule before bedtime. 300 Capsule 3 Metoprolol Succinate ER 25 MG Oral Tablet Extended Release 24 Hour (toPROL XL) TAKE ONE-HALF TABLETBY MOUTH IN THE MORNING 50 Tablet 3 Chlorhexidine Gluconate 0.12 % Mouth/Throat Solution (Periogard) RINSE AND SWISH 15ML 1-2 TIMES DAILY FOR 1 MINUTE THEN SPIT OUT. Rosuvastatin Calcium 10 MG Oral Tablet (Crestor) Take 1 Tablet by mouth at bedtime. 30 Tablet 11 oxyCODONE-Acetaminophen 5-325 MG Oral Tablet (Percocet) Take 1 Tablet by mouth every 6 hours as needed for Pain, Severe. 30 Tablet 0 DULoxetine HCl 20 MG Oral Capsule Delayed Release Particles (Cymbalta) Take 1 Capsule by mouth in the morning. Do not cut, crush or chew. 30 Capsule 5 Cyclobenzaprine HCl 10 MG Oral Tablet Take 1 Tablet by mouth 3 times a day as needed for Muscle spasms. 60 Tablet 3 No current facility-administered medications for this visit. The patient's medication list was reviewed and updated as needed. Past Medical History: Diagnosis Date Allergic rhinitis 01/14/2007 Aneurysm of ascending aorta (HCC) 04/20/2016 Chronic laryngitis 01/14/2007 Chronic pharyngitis 01/14/2007 Dr. Vee Coronary artery calcification 08/23/2021 GERD (gastroesophageal reflux disease) Hypertrophy of nasal turbinates 01/14/2007 Malignant neoplasm of prostate (HCC) 05/2003 radiation finished 2007 Other chronic sinusitis 01/14/2007 Spinal cord stimulator status 06/18/2024 Spinal stenosis, cervical region 05/18/2006 not a problem since before 2009 Upper airway cough syndrome 07/24/2017 Past Surgical History: Procedure Laterality Date ARTHROPLASTY KNEE TOTAL Left 07/30/2009 LEFT- Dr. Conner ARTHROSCOPY KNEE W/LAT RELEAS left CARPAL TUNNEL SURGERY 1999 Right hand COLONOSCOPY 03/14/2006 Normal_ repeat 10 years COLONOSCOPY, DIAGNOSTIC (RECTUM) 03/17/2016 normal/COLONOSCOPY FLEXIBLE PROXIMAL DIAGNOSTIC performed by Flaquito Rowell MD at [facility] EGD, FLEXIBLE, DIAGNOSTIC 12/04/2022 normal / ESOPHAGOGASTRODUODENOSCOPY (EGD), FLEXIBLE, TRANSORAL, DIAGNOSTIC performed by Marcy Cutler MD at [facility] EVAL NEUROSTIM PULSE GEN, W/ REPROGRAM N/A 12/22/2019 NEUROSTIMULATOR PULSE GENERATOR/ TRANSMITTER, WITH INTRAOPERATIVE OR SUBSEQUENT PROGRAMMING performed by Lo Wagner MD at OR [facility] IMPLANT EPIDURAL NEUROELECTRODES N/A 12/22/2019 PERCUTANEOUS IMPLANTATION NEUROSTIMULATOR EPIDURAL performed by Lo Wagner MD at [facility] IMPLANT EPIDURAL NEUROELECTRODES N/A 01/21/2020 LAMINECTOMY POSTERIOR FOR IMPLANTATION NEUROSTIMULATOR ELECTRODES EPIDURAL performed by Tex Morgan MD at [facility] LAMINOTOMY, ADDL LUMBAR 1989 Reading RADICAL PROSTATE REMOVAL 2002 REMOVE LUMBAR SPINE LAMINA, 1 SEG N/A 12/19/2017 LAMINECTOMY FACETECTOMY AND FORAMINOTOMY LUMBAR performed by Tex Morgan MD at OR [facility] Review of patient's allergies indicates: Allergen Reactions Adhesive Tape Rash Penicillins Hives Review of Systems Constitutional: Negative for appetite change, fatigue and unexpected weight change. Respiratory: Negative for cough, shortness of breath and wheezing. Cardiovascular: Negative for chest pain, palpitations and leg swelling. Gastrointestinal: Negative for abdominal pain, blood in stool, constipation, diarrhea, nausea and vomiting. Genitourinary: Negative for dysuria, frequency and hematuria. Musculoskeletal: Positive for arthralgias, back pain and gait problem. Neurological: Negative for dizziness, syncope and headaches. Lower extremity neuropathic pain is present. Psychiatric/Behavioral: Positive for sleep disturbance. Negative for confusion and decreased concentration. OBJECTIVE: BP 112/74 (BP Site: Left Arm, BP Position: Sitting, BP Cuff Size: Regular) | Pulse 69 | Temp 96.1 F (35.6 C) (Tympanic) | Resp 18 | Wt 210 lb 11.2 oz (95.6 kg) | SpO2 96% | BMI 30.02 kg/m | BSA2.18 m Physical Exam Vitals and nursing note reviewed. Constitutional: General: He is not in acute distress. Appearance: Normal appearance. He is not toxic-appearing. HENT: Head: Normocephalic and atraumatic. Cardiovascular: Rate and Rhythm: Normal rate and regular rhythm. Heart sounds: Normal heart sounds. No murmur heard. No gallop. Pulmonary: Effort: Pulmonary effort is normal. Breath sounds: Normal breath sounds. No wheezing, rhonchi or rales. Abdominal: General: Bowel sounds are normal. There is no distension. Palpations: Abdomen is soft. Tenderness: There is no abdominal tenderness. Musculoskeletal: Right lower leg: No edema. Left lower leg: No edema. Neurological: Mental Status: He is alert and oriented to person, place, and time. Mental status is at baseline. Motor: No weakness. Gait: Gait normal. Psychiatric: Mood and Affect: Mood normal. Behavior: Behavior normal. Thought Content: Thought content normal. PLAN AND ASSESSMENT: HTN, goal below 140/90 (Primary) Continue Losartan Dyslipidemia, goal LDL below 100 Continue Rosuvastatin Spinal stenosis of lumbar region with neurogenic claudication Continue Oxycodone, and Gabapentin S/P spinal cord stimulator Mixed sensory-motor polyneuropathy - Start DULoxetine HCl 20 MG Oral Capsule Delayed Release Particles (Cymbalta); Take 1 Capsule by mouth in the morning. Do not cut, crush or chew. Continue Gabapentin Prediabetes - HEMOGLOBIN A1C; Future; Expected date: 06/18/2024 Weight is down 20 lbs with diet Coronary artery calcification Continue ASA, Metoprolol ER, and Losartan Aneurysm of ascending aorta without rupture (HCC) Follow up CT chest in 03/2025 History of prostate cancer Primary insomnia S/P lumbar laminectomy Spinal cord stimulator status Pain in joint of right shoulder - XR SHOULDER, 2 OR MORE VIEWS; Future; Expected date: 06/18/2024 Follow Up: Return in about 4 months (around 10/17/2024), or if symptoms worsen or fail to improve. Guido Anne DO 8:35 AM 06/18/2024 documented in this encounter Nursing Notes * Nena East RN - 06/18/2024 8:07 AM EST 4 month return Fell off ladder 06/05/24-was putting food in a bird feeder and lost his balance. Having pain in right shoulder. Having difficulty sleeping d/t pain in both knees down to feet Had stimulator place in right lower back in May. Has an area that fells cold all the time documented in this encounter Plan of Treatment Upcoming Encounters Date Type Department Care Team (Late st Contact Info) Description 06/18/2024 10:00 AM EST Nutrition Services Nutrition Services [address] [facility] [address] [place] [address] Kristy Hicks RDN [address] [place] [address] Arrived 02/17/2025 9:20 AM EDT Laboratory Laboratory [facility] [address] [facility] [place] [id number] [address] [place] [address] 02/24/2025 2:00 PM EDT Office Visit Hematology/Oncology [facility] [address] [facility] [place] [id number] David Newton MD [address] [facility] [place] [address] 03/11/2025 8:00 AM EDT Imaging Radiology [facility] [facility] [address] [facility] [address] 03/26/2025 8:00 AM EDT Office Visit Cardiology, [facility] [address] [facility] [place] [address] Germania Velasco CRNP [address] [facility] [place] [address] Pending Results Name Type Priority Associated Diagnoses Date /Time HEMOGLOBIN A1C Lab Routine Prediabetes 06/18/2024 8:49 AM EST XR SHOULDER, 2 OR MORE VIEWS Medical Imaging Routine Pain in joint of right shoulder 06/18/2024 8:59 AM EST Scheduled Orders Name Type Priority Associated Diagnoses Orde r Schedule HEMOGLOBIN A1C Lab Routine Prediabetes Expected: 06/18/2024 (Approximate), Expires: 06/18/2025 XR SHOULDER, 2 OR MORE VIEWS Medical Imaging Routine Pain in joint of right shoulder Expected: 06/18/2024, Expires: 07/19/2025 Health Maintenance Due Date Last Done Comments Adult Wellness Visit 01/19/2024 01/18/2023 HbA1c 02/25/2025 02/26/2024, 09/30, 06/11/2023, Additional history exists Albumin/Creatinine Ratio 02/27/2025 02/27/2022 GFR 04/21/2025 04/21/2024, 12/01, 06/18/2023, Additional history exists Depression Screening 06/18/2025 06/18/2024, 06/10/20 23 DTap/Tdap Vaccines (3 - Td or Tdap) [...] this encounter Medical Devices Implanted Type Area Media Services Director Device Identifier Shelf Expiration Date Model / Serial / Lot Kit Pulse Generator - [id number] - [id number] Implanted:Qty: 1 on 01/21/2020 by Tex Morgan MD at OR [facility] N/A: Spine Thoracic [employer]6 10/14/2021 [id number] / [id number] / P[employer] - [id number] - [id number] Implanted:Qty: 1 on 01/21/2020 by Tex Morgan MD at OR [facility] N/A: Spine Thoracic [employer]6 09/16/2021 [id number] / [id number] / [employer] [place] - [id number] Implanted:Qty: 1 on 01/21/2020 by Tex Morgan MD at OR 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 No Care Teams Strip Stamp Straightener Relationship Specialty Start Date End Date Guido Anne DO [address] [place] [address] PCP - General Internal Medicine 12/21/23 documented as of this encounter"
--- OUTSIDE RECORDS SUMMARY | 2024-07-11 09:07 | External Medical Summary | Summary of Care ---
Author Name Unknown Organization [facility] Address [address] [place] [address] Phone [phone] Care Team Providers Care City Administrator Name Role Phone Marya Anne DO Primary Care Provider Reason for Visit * Reason Onset Date Comments Medication Refill 06/27/2024 Encounter Details Date Type Department Care Team (Late st Contact Info) Description 06/27/2024 Refill Family Practice [address] [facility] [address] [place] [phone] Marya Anne DO [address] [place] [address] Spinal stenosis of lumbar region without neurogenic claudication; S/P lumbar laminectomy Allergies Active Allergy Reactions Criticality Noted Date Comments Adhesive Tape Rash 01/03/2018 Penicillins 04/21/2004 Hives documented as of this encounter (statuses as of 06/30/2024) Medications CALCIUM 600-D 600-400 MG-UNIT PO TABS 2 tablets daily; unsure of dosage 0 Active ASPIRIN 81 MG PO CHEW One pill by mouth once a day with food Active Coenzyme Q10 (COQ-10) 100 MG CAPS Take 100 mg by mouth daily. 7 Active Probiotic Daily Oral Capsule Take 1 Capsule by mouth in the morning. Active Losartan Potassium 25 MG Oral Tablet (Cozaar)Indication s:Essential hypertension with goal blood pressure less than 140/90,Aneurysm of ascending aorta without rupture (HCC) TAKE ONE TABLET BY MOUTH EVERY MORNING 90 Tablet 3 06/09/2024 4:02 PM EST 4 09/17/19 25 Active Gabapentin 300 MG Oral Capsule (Neurontin)Indicat ions:Spinal stenosis of lumbar region without neurogenic claudication,Perip heral polyneuropathy Take 1 Capsule by mouth in the morning and 1 Capsule at noon and 1 Capsule before bedtime. 300 Capsule 3 05/01/2024 2:53 PM EDT 4 Active Metoprolol Succinate ER 25 MG Oral Tablet Extended Release 24 Hour (toPROL XL)Indications:Ess ential hypertension with goal blood pressure less than 140/90,Aneurysm of ascending aorta without rupture (HCC),Palpitations TAKE ONE-HALF TABLET BY MOUTH IN THE MORNING 50 Tablet 3 05/01/2024 2:25 PM EDT 4 11/05/19 25 Active Chlorhexidine Gluconate 0.12 % Mouth/Throat Solution (Periogard) RINSE AND SWISH 15ML 1-2 TIMES DAILY FOR 1 MINUTE THEN SPIT OUT. 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 60 Tablet 3 4 Active Rosuvastatin Calcium 10 MG Oral Tablet (Crestor)Indicatio ns:Dyslipidemia, goal LDL below 100 Take 1 Tablet by mouth at bedtime. 30 Tablet 11 06/28/2024 8:09 AM EST 4 Active DULoxetine HCl 20 MG Oral Capsule Delayed Release Particles (Cymbalta)Indicati ons:Mixed sensory-motor polyneuropathy Take 1 Capsule by mouth in the morning. Do not cut, crush or chew. 30 Capsule 5 4 Active oxyCODONE-Acetamin ophen 5-325 MG Oral Tablet (Percocet)Indicati ons:Spinal stenosis of lumbar region without neurogenic claudication,S/P lumbar laminectomy Take 1 Tablet by mouth every 6 hours as needed for Pain, Severe. 30 Tablet 4 Active oxyCODONE-Acetamin ophen 5-325 MG Oral Tablet (Percocet)Indicati ons:Spinal stenosis of lumbar region without neurogenic claudication,S/P lumbar laminectomy Take 1 Tablet by mouth every 6 hours as needed for Pain, Severe. 30 Tablet 4 06/27/20 24 Discontin ued(Refil l) documented as of this encounter (statuses as of 06/30/2024) Active Problems Problem Noted Date Diagnosed Date [...] as of this encounter (statuses as of 06/30/2024) Resolved Problems Problem Noted Date Diagnosed Date Resolved Date Peripheral polyneuropathy 07/19/2023 Anemia 12/19/2017 04/15/2018 Right sided abdominal pain 12/19/2017 0 01/03/2018 History of surgical procedure 12/19/2017 01/03/2018 Ascending aorta enlargement 03/15/2016 04/20/2016 Inflamed seborrheic keratosis 02/10/2013 04/15/2018 Other seborrheic keratosis 02/10/2013 1 Cutaneous skin tags 02/10/2013 04/15/20 18 MEDICATION USE AGREEMENT 12/20/201209/2020 Overview (12/20/2012): Managed by Marya Anne DO. To view the Medication Usage Agreement, go to Action, Patient Files. Lumbosacral neuritis 11/18/2012 018 Annular tear of lumbar disc 05/20/2012 06/17/2018 [id number] Clinical Trial [id number] 04/12/2011 07/09/2013 Overview (04/12/2011): Trial participant as of: [facility] [id number]: A Randomized, Phase III Study of Standard Dosing Versus Longer Dosing Interval of Zoledronic Acid in Metastatic Cancer Project #: [id number] PI Name: David Newton MD PI CRC Name: Monique Alfred [facility] Contact PI or SUBCONTRACT ADMINISTRATOR regarding any serious medical event, ER visit, hospitalization, if new Rx given, or billing question [id number] Clinical Trial [id number] 04/12/2011 08/13/2013 Overview: Renamed per the Centers for Medicare and Medicaid billing requirements to include Clinical Trial.gov number. Trial participant as of: [facility] [id number]: A Randomized, Phase III Study of Standard Dosing Versus Longer Dosing Interval of Zoledronic Acid in Metastatic Cancer Project #: [id number] PI Name: David Newton MD PI CRC Name: Monique Alfred [facility] Contact PI or SUBCONTRACT ADMINISTRATOR regarding any serious medical event, ER visit, hospitalization, if new Rx given, or billing question [id number] Clinical Trial*[id number] 01/05/2011 04/12/2011 Overview (01/05/2011): Trial participant as of: [facility] [id number]: A Randomized, Phase III Study of Standard Dosing Versus Longer Dosing Interval of Zoledronic Acid in Metastatic Cancer Project #: [id number] PI Name: David Newton MD PI [facility] Name: Monique PonceJared Alfred [facility] Contact PI or SUBCONTRACT ADMINISTRATOR regarding any serious medical event, ER visit, hospitalization, if new Rx given, or billing question Secondary malignant neoplasm of bone 01/04/2011 10/15/2023 NONALLERGIC RHINITIS 06/07/2006 018 Cough 06/07/2006 06/17/2018 Spinal stenosis, cervical region 05/18/2006 12/19/2017 Esophageal reflux 12/15/2005 11/25/2019 documented as of this encounter (statuses as of 06/30/2024) Immunizations Name Administration Dates Next Due COVID-19 [...] Date Recorded PHQ Adult Total Score 0 06/18/2024 Hunger Vital Sign Answer Date Recorded Within [...] 2:44 PM EDT Shirley Hess RN documented as of this encounter Mental Status * Because of a physical, mental, or emotional condition, do you have serious difficulty concentrating, remembering, or making decisions? (5 years old or older) Answer Entry Date Author No 01/21/2020 2:44 PM EDT Shirley Hess RN documented in this encounter Miscellaneous Notes * Telephone Encounter - Marya Anne DO - 06/30/2024 1:08 PM ESTSigned Prescriptions: Disp Refills oxyCODONE-Acetaminophen 5-325 MG Oral Tabl*30 Tab*0 Sig: Take 1 Tablet by mouth every 6 hours as needed for Pain, Severe.Authorizing Provider: MARYA ANNE------- * Telephone Encounter - Marya Anne DO - 06/30/2024 1:06 PM EST I have reviewed the patients controlled substance dispensing history in the Prescription Drug Monitoring Program in compliance with the [facility] regulations before prescribing a controlled substance. Last Tox Screen Results: Results for orders placed or performed in visit on 05/27/19 OPIOIDS/BENZO COMPLIANCE MONITORING W/INTERP Result Value COMPLIANCE INTERP (NOTE) URINE DRUG SCREEN RESULT Amphetamine NEGATIVE Benzodiazepines NEGATIVE Cannabinoids NEGATIVE Cocaine Metabolite NEGATIVE HYDROCODONE NEGATIVE METHADONE METABOLITE NEGATIVE Morphine / Codeine NEGATIVE OXYCODONE NEGATIVE COMMENT THE ABOVE SCREENING RESULTS ARE PRESUMPTIVE AND CAN ONLY BE USED FOR MEDICAL PURPOSES. CONFIRMATORY TESTING IS AVAILABLE UPON REQUEST. Cutoff Concentration URINE VALID INTERP NORMAL CREATININE INGE 131 *Note: Due to a large number of results and/or encounters for the requested time period, some results have not been displayed. A complete set of results can be found in Results Review. Medication due 04/22/2024 * Telephone Encounter - Mila Bach [facility] - 06/30/2024 9:19 AM ESTPending Prescriptions: Disp Refills oxyCODONE-Acetaminophen 5-325 MG Oral Tabl*30 Tab*0 Sig: Take 1 Tablet by mouth every 6 hours as needed for Pain, Severe. * Telephone Encounter - Mila Bach [facility] - 06/30/2024 8:43 AM EST I have reviewed the patients controlled substance dispensing history in the Prescription Drug Monitoring Program in compliance with the [facility] regulations before prescribing a controlled substance. PDMP checked on 06/30/2024. Pending Prescriptions: Disp Refills oxyCODONE-Acetaminophen 5-325 MG Oral Tab*30 Tab*0 Sig: Take 1 Tablet by mouth every 6 hours as needed for Pain, Severe. Last Visit: 06/18/2024 (in office), Visit date not found (telemedicine) Next Visit: 10/15/2024 Date medication was last filled: 04/15/24 Date medication is due for refill: 04/22/24 Pharmacy: [facility] Is this request for a controlled substance? Yes and Urine Drug Screen Not completed in last year Toxicology results: Results for orders placed or performed in visit on 05/27/19 OPIOIDS/BENZO COMPLIANCE MONITORING W/INTERP Result Value COMPLIANCE INTERP (NOTE) URINE DRUG SCREEN RESULT Amphetamine NEGATIVE Benzodiazepines NEGATIVE Cannabinoids NEGATIVE Cocaine Metabolite NEGATIVE HYDROCODONE NEGATIVE METHADONE METABOLITE NEGATIVE Morphine / Codeine NEGATIVE OXYCODONE NEGATIVE COMMENT THE ABOVE SCREENING RESULTS ARE PRESUMPTIVE AND CAN ONLY BE USED FOR MEDICAL PURPOSES. CONFIRMATORY TESTING IS AVAILABLE UPON REQUEST. Cutoff Concentration URINE VALID INTERP NORMAL CREATININE INGE 131 *Note: Due to a large number of results and/or encounters for the requested time period, some results have not been displayed. A complete set of results can be found in Results Review. Patient more recently received tramadol from Dr. Packer since percocet prescription Please approve if appropriate. Thanks, Mila Mao, Pharm D, BCACP Clinical Pharmacist [facility] 06/30/2024, 9:16 AM Ph. [phone] documented in this encounter Plan of Treatment Upcoming Encounters Date Type Department Care Team (Late st Contact Info) Description 10/15/2024 10:00 AM EDT Office Visit Family Practice [address] [place] [address] [address] [place] [address] Marya Anne DO [address] [place] [address] 10/15/2024 11:00 AM EDT Nutrition Services Nutrition Services [address] [place] [address] [address] [place] [address] Kristy Hicks RDN [address] [place] [address] 02/17/2025 9:20 AM EDT Laboratory Laboratory [facility] [address] [place] [phone] Abigail Lab [facility] [address] [place] [address] 02/24/2025 2:00 PM EDT Office Visit Hematology/Oncology [facility] [address] [place] [address] David Newton MD 200 [facility] [place] [address] 03/11/2025 8:00 AM EDT Imaging Radiology [facility] 1st [facility] [address] [place] [address] 03/26/2025 8:00 AM EDT Office Visit Cardiology, [facility] [address] [place] [address] Germania Velasco CRNP 132 [facility] [place] [address] Health Maintenance Due Date Last Done Comments Adult Wellness Visit 01/19/2024 01/18/2023 Albumin/Creatinine Ratio 02/27/2025 02/27/2022 GFR 04/21/2025 04/21/2024, 12/01, 06/18/2023, Additional history exists Depression Screening 06/18/2025 06/18/2024 HbA1c 06/18/2025 06/18/2024, 01/31, 10/15/2023, Additional history exists DTap/Tdap Vaccines (3 - Td or Tdap) 01/04/2028 01/03/2018, 09/19/2007 Pneumococcal Vaccine: 50+ Years Completed 01/12/2015, 03/28/2010 Zoster Vaccines Completed [...] this encounter Medical Devices Implanted Type Area Confidential Secretary Device Identifier Shelf Expiration Date Model / Serial / Lot Kit Pulse Generator - [id number] - [id number] Implanted:Qty: 1 on 01/21/2020 by Tex Morgan MD at OR [facility] N/A: Spine Thoracic [employer] 10/14/2021 [id number] / [id number] / Paddle Lead Coveredge - [id number] - [id number] Implanted:Qty: 1 on 01/21/2020 by Tex Morgan MD at OR [facility] N/A: Spine Thoracic [employer] 09/16/2021 [id number] / [id number] / Clik [place] - [id number] Implanted:Qty: 1 on 01/21/2020 by Tex Morgan MD at OR [facility] N/A: Spine Thoracic [employer] : PAIN MGMT 09/11/2021 [id number] / / [id number] documented as of this encounter Visit Diagnoses Diagnosis Spinal stenosis of lumbar region without neurogenic claudication Spinal stenosis, lumbar region, without neurogenic claudication S/P lumbar laminectomy Other postprocedural status documented in this encounter Advance Directives * [...] Power of Attor angle? No Care Teams City Administrator Relationship Specialty Start Date End Date Marya Anne DO [address] [place] [address] PCP - General Internal Medicine 12/21/23 documented as of this encounter
--- OUTSIDE RECORDS SUMMARY | 2024-07-11 09:07 | External Medical Summary | Summary of Care ---
Author Name Unknown Organization [facility] Address [address] [place] [address] Phone [phone] Care Team Providers Care Lockstitch Back Maker Name Role Phone Guido Anne DO Primary Care Provider [phone] Reason for Visit * Reason Onset Date Comments Test Results 06/20/202406/20 Encounter Details Date Type Department Care Team (Late st Contact Info) Description 06/20/2024 Telephone Family Practice [facility] [address] [place] [phone] Guido Anne DO [address] [place] [address] Test Results (06/20) Allergies Active Allergy Reactions Criticality Noted Date Comments Adhesive Tape Rash 01/03/2018 Penicillins 04/21/2004 Hives documented as of this encounter (statuses as of 06/20/2024) Medications CALCIUM 600-D 600-400 MG-UNIT PO TABS [...] as of this encounter (statuses as of 06/20/2024) Active Problems Problem Noted Date Diagnosed Date [...] as of this encounter (statuses as of 06/20/2024) Resolved Problems Problem Noted Date Diagnosed Date [...] Annular tear of lumbar disc 05/20/2012 06/17/2018 [id number] Clinical Trial [id number] 04/12/2011 07/09/2013 Overview (04/12/2011): Trial participant as of: [facility] [id number]: A Randomized, Phase III Study of Standard Dosing Versus Longer Dosing Interval of Zoledronic Acid in Metastatic Cancer Project #: [id number] PI Name: David Newton MD PI CRC Name: Monique Alfred CRC Contact PI or SKIN CARE TECHNICIAN regarding any serious medical event, ER visit, hospitalization, if new Rx given, or billing question [id number] Clinical Trial [id number] 04/12/2011 08/13/2013 Overview: Renamed per the Centers for Medicare and Medicaid billing requirements to include Clinical Trial.gov number. Trial participant as of: [facility] [id number]: A Randomized, Phase III Study of Standard Dosing Versus Longer Dosing Interval of Zoledronic Acid in Metastatic Cancer Project #: [id number] PI Name: David Newton MD PI CRC Name: Monique Alfred CRC Contact PI or SKIN CARE TECHNICIAN regarding any serious medical event, ER visit, hospitalization, if new Rx given, or billing question [id number] Clinical Trial*[id number] 01/05/2011 04/12/2011 Overview (01/05/2011): Trial participant as of: [facility] [id number]: A Randomized, Phase III Study of Standard Dosing Versus Longer Dosing Interval of Zoledronic Acid in Metastatic Cancer Project #: [id number] PI Name: David Newton MD PI CRC Name: Monique Alfred CRC Contact PI or SKIN CARE TECHNICIAN regarding any serious medical event, ER visit, hospitalization, if new Rx given, or billing question Secondary malignant neoplasm of bone 01/04/2011 10/15/2023 NONALLERGIC RHINITIS 06/07/2006 018 Cough 06/07/2006 06/17/2018 Spinal stenosis, cervical region 05/18/2006 12/19/2017 Esophageal reflux 12/15/2005 11/25/2019 documented as of this encounter (statuses as of 06/20/2024) Immunizations Name Administration Dates Next Due COVID-19 [...] 18 years and over) Not on file 3 Are you (or your family) ankita [...] 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 Anne. Pt acknowledged understanding. Therapy is scheduled for Sunday. No questions at this time. * Telephone Encounter - Nathalie Barr LPN - 06/20/2024 1:51 PM EST ----- Message from Guido Anne DO sent at 06/20/2024 11:47 AM EST ----- Right shoulder joint is preserved on x-rays. Calcification of rotator cuff tendon. He was referred to PT at visit. documented in this encounter Plan of Treatment Upcoming Encounters Date Type Department Care Team (Late st Contact Info) Description 10/15/2024 10:00 AM EDT Office Visit Family Practice [facility] [address] [place] [address] Guido Anne DO [address] [place] [address] 10/15/2024 11:00 AM EDT Nutrition Services Nutrition Services [facility] [address] [place] [address] Kristy Hicks RDN [address] [place] [address] 02/17/2025 9:20 AM EDT Laboratory Laboratory [facility] [address] [place] [phone] [facility] [address] [place] [address] 02/24/2025 2:00 PM EDT Office Visit Hematology/Oncology [facility] [address] [facility] [address] [place] [phone] David Newton MD [address] [facility] [place] [place] [address] 03/11/2025 8:00 AM EDT Imaging Radiology [facility]st [facility] [place] [address] 03/26/2025 8:00 AM EDT Office Visit Cardiology, [facility] 132 [facility] [place] [address] Germania Velasco CRNP 132 [facility] [place] [address] Health Maintenance Due Date Last Done Comments [...] this encounter Medical Devices Implanted Type Area Drawer In Jacquard Loom Device Identifier Shelf Expiration Date Model / Serial / Lot Kit Pulse Generator - [id number] - [id number] Implanted:Qty: 1 on 01/21/2020 by Tex Morgan MD at OR [facility] N/A: Spine Thoracic [employer] 10/14/2021 DC-1160 / [id number] / Paddle Lead Coveredge - [id number] - [id number] Implanted:Qty: 1 on 01/21/2020 by Tex Morgan MD at OR [facility] N/A: Spine Thoracic [employer] 09/16/2021 [id number] / [id number] / Clik [place] - [id number] Implanted:Qty: 1 on 01/21/2020 by Tex Morgan MD at OR [facility] N/A: Spine Thoracic [employer] : PAIN MGMT 09/11/2021 [id number] / / [id number] documented as of this encounter Advance Directives * Full Code [...] Power of Attor angle? No Care Teams Lockstitch Back Maker Relationship Specialty Start Date End Date Guido Anne DO [address] [place] [address], [place] [address] PCP - General Internal Medicine 12/21/23 documented as of this encounter
--- OUTSIDE RECORDS SUMMARY | 2024-07-11 09:07 | External Medical Summary | Summary of Care ---
Author Name Unknown Organization [facility] Address [address] [place] [address] Phone [phone] Care Team Providers Care Translator Name Role Phone TjdeanGuido DO Primary Care Provider Reason for Visit * Reason Comments Medical Nutrition Therapy Encounter Details Date Type Department Care Team (Latest Contact Info) Description 06/18/2024 10:00 AM EST Nutrition Services Nutrition Services 65 [facility] [address] [place] [address] Kristy Hicks, RDKevin [address] [place] [address] Prediabetes*; Dyslipidemia, goal LDL below 100 Allergies Active Allergy Reactions Criticality Noted Date [...] for Pain, Severe. 30 Tablet 4 Active documented as of this encounter [...] AGREEMENT 12/20/201209/2020 Overview (12/20/2012): Managed by Guido nAne DO. To view the Medication Usage Agreement, go to Action, Patient Files. Lumbosacral neuritis 11/18/2012 018 Annular tear of lumbar disc 05/20/2012 06/17/2018 [id number] Clinical Trial [id number] 04/12/2011 07/09/2013 Overview (04/12/2011): Trial participant as of: [facility] [id number]: A Randomized, Phase III Study of Standard Dosing Versus Longer Dosing Interval of Zoledronic Acid in Metastatic Cancer Project #: [id number] PI Name: David Newton MD PI CRC Name: Monique Alfred [facility] Contact PI or WHEEL MOLDER regarding any serious medical event, ER visit, hospitalization, if new Rx given, or billing question [id number] Clinical Trial [id number] 04/12/2011 08/13/2013 Overview: Renamed per the [facility] for Medicare and Medicaid billing requirements to include Clinical Trial.gov number. Trial participant as of: [facility] [id number]: A Randomized, Phase III Study of Standard Dosing Versus Longer Dosing Interval of Zoledronic Acid in Metastatic Cancer Project #: [id number] PI Name: David Newton MD PI CRC Name: Monique Alfred [facility] Contact PI or WHEEL MOLDER regarding any serious medical event, ER visit, hospitalization, if new Rx given, or billing question [id number] Clinical Trial*[id number] 01/05/2011 04/12/2011 Overview (01/05/2011): Trial participant as of: [facility] [id number]: A Randomized, Phase III Study of Standard Dosing Versus Longer Dosing Interval of Zoledronic Acid in Metastatic Cancer Project #: [id number] PI Name: David Newton MD PI CRC Name: Monique Alfred [facility] Contact PI or WHEEL MOLDER regarding any serious medical event, ER visit, [...] 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 Not on file Not [...] 01/21/2020 2:44 PM YESSICAT Shirley Hess RN * Do you have [...] Shirley Hess RN documented in this encounter Patient Instructions * Patient Instructions* Kristy Hicks RDN - 06/18/2024 10:20 AM EST Current Goals: Discussed the following goals with patient who agrees to the following: I will continue to strive for weight loss--goal is 200 or slightly less before next visit documented in this encounter Progress Notes * Kristy Hicks RDN - 06/18/2024 9:53 AM EST NUTRITION FOLLOW-UP NOTE - [address] [place] [address] Name: Marc Oh Location: NUTRITION SERVICES [address] [place] [address] Date: 06/18/2024 Time: 9:53 AM Patient location: [address] [place] [address] Clinic. Patient was seen [id number] in the clinic. Patient was verified with two unique identifiers. Reason for Nutrition Follow-up: Dyslipidemia, Prediabetes NUTRITION ASSESSMENT: Client History Patient reports he is doing well with his diet overall. He continues to lose weight---he attributesto avoiding sweets and eating healthy. He states he fell in the beginning of June, had x-rays of his right shoulder area today. He is awaiting results. Patient has made good progress towards the following goals: Choose a lean protein at all meals daily Support System: Spouse Barriers to Learning: None Special Education Needs: None Food/Nutrition-Related History Describes typical diet history/24 hr recall Breakfast: bowl of fruit (bananas, grapes, blueberries, papaya), 2 pieces of toast with cottage cheese and cinnamon and decaf coffee Snacks: none recently Lunch: salad with balsamic vinaigrette dressing; most tomes a protein and vegetables Snacks: cheddar cheese (4 slices) Dinner/snack: bagel (647) with cream cheese Snacks: sometimes red peppers and 1-2 pieces of cheese Drinks: decaf coffee, water and wine Restaurant meals: at least once a month Alcohol: maybe 1 glass of wine/day (not always) Diet Recall/Food Logs Indicate: AREAS FOR IMPROVEMENT: Inconsistent protein intake POSITIVE: Portion control Food and Nutrient Intake and other pertinent information: N/a Physical Activity: wood turning in his basement (several hours/day) Medications Changes/Updates: Current Outpatient Medications Medication Sig Dispense Refill [...] DAILY FOR 1 MINUTE THEN SPIT OUT. Cyclobenzaprine HCl 10 MG Oral Tablet Take 1 Tablet by mouth 3 times a day as needed for Muscle spasms. 60 Tablet 3 Rosuvastatin Calcium 10 MG Oral Tablet (Crestor) [...] cut, crush or chew. 30 Capsule 5 No current facility-administered medications for this visit. Nutrition-Focused Physical Findings Overall appearance: WNWD Fluid accumulation: Fluid Assessment: Normal Fluid Location: N/A Fluid Description: N/A Digestive system: No issues, Appetite: good Nerves and cognition: Awake, alert and Oriented Anthropometric Measurements Current Weight: Wt Readings from Last 1 Encounters: 06/18/24 95.6 kg (210 lb 11.2 oz) Wt Readings from Last 4 Encounters: 06/18/24 95.6 kg (210 lb 11.2 oz) 04/23/24 99.2 kg (218 lb 9.6 oz) 03/18/24 101.2 kg (223 lb) 03/05/24 102.2 kg (225 lb 4.8 oz) Weight Change: decreased by 15 pounds in the past 3 months BMI Readings from Last 1 Encounters: 06/18/24 30.02 kg/m Biochemical Data, Medical Tests, and Procedures Pending today Awaiting updated A1C Self-Monitoring Blood Glucose Source of Information: Participant does not monitor blood glucoses Hemoglobin AIC Results: Lab Results Component Value Date/Time HEMOGLOBIN A1C - [facility] 6.3 (H) 02/26/2024 10:50 AM HEMOGLOBIN A1C - [facility] 5.8 (H) 10/15/2023 08:35 AM HEMOGLOBIN A1C - [facility] 6.3 (H) 06/11/2023 09:08 AM HEMOGLOBIN A1C - [facility] 6.0 (H) 01/07/2020 11:34 AM Previous Nutrition Diagnosis: Imbalance of nutrients related to previous high calorie, high fat and/or high sugar selections, Inconsistent carbohydrate intake, inconsistent protein intake as evidenced by Reported diet and/or activity recall CURRENT NUTRITION DIAGNOSIS Imbalance of nutrients related to inconsistent protein intake as evidenced by Reported diet and/or activity recall NUTRITION INTERVENTION: NUTRITION EDUCATION Comprehensive nutrition education NUTRITION COUNSELING Strategies Motivational Interviewing Diabetes Standards of Care: Care Gaps have been addressed with other members of 65 [facility] Care Team Nutrition Prescription: Diet: 2000 mg Sodium Consistent Carbohydrate Heart Healthy Low Fat/Low Cholesterol Daily Calorie Needs: 1600 Kcals Daily Protein Needs: 61-82 Grams protein Current Goals: Discussed the following goals with patient who agrees to the following: I will continue to strive for weight loss--goal is 200 or slightly less before next visit Dietitian Action: Reinforced benefit of having a lean protein with meals/snacks Discussed having 45-60 grams of carbohydrate with meals and 15-20 grams of carbohydrates/snack Discussed foods high in sodium to avoid Encouraged maintaining routines during the holiday season Recommendations to Ordering Provider: Continue current plan of nutrition care. NUTRITION MONITORING AND EVALUATION: The following will be monitored and evaluated at the next visit: Monitor weight. Monitor labs. Monitor goals and progress. Plan: Patient scheduled to return in 4 months; dietitian phone # given for future reference. 30 minutes Medical Nutrition Therapy Time In: 1000 (06/18/24 1123) Time Out: 1027 (06/18/24 1123) 15 min (8-22 min) 30 min (23-37 min) 45 min (38-52 min) 60 min (53-67 min) 75 min (68-82 min) 90 min (83-97 min) 105 min (98-113 min) Kristy Hicks RDN 06/18/2024 9:53 AM NUTRITION SERVICES 65 [facility] documented in this encounter Plan of Treatment Upcoming Encounters Date Type Department Care Team (Late st Contact Info) Description 10/15/2024 10:00 AM EDT Office Visit Family Practice [address] [place] [address] 293 [facility] [place] [address] Guido Anne DO 293 [place] [address] 10/15/2024 11:00 AM EDT Nutrition Services Nutrition Services 65 [facility] 293 [facility] [place] [address] Kristy Hicks RDN [address] [place] [address] 02/17/2025 9:20 AM EDT Laboratory Laboratory [facility] [address] [place] [phone] [place] [facility] [address] [place] [address] 02/24/2025 2:00 PM EDT Office Visit Hematology/Oncology [facility] [address] [place] [phone] David Newton MD 200 [facility] [address] [place] [address] 03/11/2025 8:00 AM EDT Imaging Radiology [address] [place] [address] 03/26/2025 8:00 AM EDT Office Visit Cardiology, [facility] [address] [place] [address] Germania Velasco CRNP 132 [facility] [place] [address] Health Maintenance Due Date Last Done Comments Adult Wellness Visit 01/19/2024 01/18/2023 HbA1c 02/25/2025 02/26/2024, 09/30, 06/11/2023, Additional history exists Albumin/Creatinine Ratio 02/27/2025 02/27/2022 GFR 04/21/2025 04/21/2024, 12/01, 06/18/2023, Additional history exists Depression Screening 06/18/2025 06/18/2024 DTap/Tdap Vaccines (3 - Td or Tdap) [...] this encounter Medical Devices Implanted Type Area Fire Tender Device Identifier Shelf Expiration Date Model / Serial / Lot Kit Pulse Generator - [id number] - [id number] Implanted:Qty: 1 on 01/21/2020 by Tex Morgan MD at [place] [facility] N/A: Spine Thoracic Card[employer] Insight 10/14/2021 [id number] / [id number] / Paddle Lead Coveredge - [id number] - [id number] Implanted:Qty: 1 on 01/21/2020 by Tex Morgan MD at [place] [facility] N/A: Spine Thoracic [email or web address] 09/16/2021 [id number] / [id number] / Clik [place] - [id number] Implanted:Qty: 1 on 01/21/2020 by Tex Morgan MD at [place] [facility] N/A: Spine Thoracic Opt[employer] : PAIN MGMT 09/11/2021 [id number] / / [id number] documented as of this encounter Visit Diagnoses Diagnosis Prediabetes- Primary Other abnormal glucose Dyslipidemia, goal LDL below 100 Other and unspecified hyperlipidemia documented in this encounter Advance Directives * [...] Power of Attor angle? No Care Teams Translator Relationship Specialty Start Date End Date Guido Anne DO 293 [place] [address] PCP - General Internal Medicine 12/21/23 documented as of this encounter
--- OUTSIDE RECORDS SUMMARY | 2024-07-11 09:07 | External Medical Summary | Summary of Care ---
Author Name Unknown Organization [facility] Address [address] [place] [address] Phone [phone] Care Team Providers Care Electric Meter Technician Name Role Phone Marya Anne DO Primary Care Provider [phone] Reason for Referral * Evaluate & Treat - Unlimited Visits (Within 10 days (routine)) - Authorized Specialty Diagnoses / Procedures Referred By Tisha river Referred To Contact Physical Therapy / Physical Medicine And Rehab Diagnoses Pain in joint of right shoulder Marya Anne DO [address] [place] [address] Phone: tel: fax: Referral ID Status Reason Start Date Expiration Date Visits Requested Visits Authorized [id number] Authorized Specialty Services Required 4 [phone] Question Answer Referral Priority Within 10 days (routine) Where should this appointment be scheduled? [facility] Reason for Visit * Reason Comments Follow Up Encounter Details Date Type Department Care Team (Late st Contact Info) Description 06/18/2024 8:00 AM EST Office Visit Family Practice [address] [place] [address], [place] [address] [place] [phone] Marya Anne DO [address] [place] [address] HTN, goal below 140/90*; Dyslipidemia, goal LDL [...] Annular tear of lumbar disc 05/20/2012 06/17/2018 [id number] Clinical Trial [id number] 04/12/2011 07/09/2013 Overview (04/12/2011): Trial participant as of: [facility] [id number]: A Randomized, Phase III Study of Standard Dosing Versus Longer Dosing Interval of Zoledronic Acid in Metastatic Cancer Project #: [id number] PI Name: David Newton MD PI CRC Name: Monique Alfred [facility] Contact PI or DITCH CLEANER regarding any serious medical event, ER visit, hospitalization, if new Rx given, or billing question [id number] Clinical Trial [id number] 04/12/2011 08/13/2013 Overview: Renamed per the Centers for Medicare and Medicaid billing requirements to include Clinical Trial.gov number. Trial participant as of: [facility] [id number]: A Randomized, Phase III Study of Standard Dosing Versus Longer Dosing Interval of Zoledronic Acid in Metastatic Cancer Project #: [id number] PI Name: David Newton MD PI CRC Name: Monique Alfred [facility] Contact PI or DITCH CLEANER regarding any serious medical event, ER visit, hospitalization, if new Rx given, or billing question [id number] Clinical Trial*[id number] 01/05/2011 04/12/2011 Overview (01/05/2011): Trial participant as of: [facility] [id number]: A Randomized, Phase III Study of Standard Dosing Versus Longer Dosing Interval of Zoledronic Acid in Metastatic Cancer Project #: [id number] PI Name: David Newton MD PI CRC Name: Monique Alfred [facility] Contact PI or DITCH CLEANER regarding any serious medical event, ER visit, [...] 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 EGD, FLEXIBLE, DIAGNOSTIC 12/04/2022 normal / ESOPHAGOGASTRODUODENOSCOPY (EGD), FLEXIBLE, TRANSORAL, DIAGNOSTIC performed by Marcy Cutler MD at ENDOSCOPY [facility] EVAL NEUROSTIM PULSE GEN, W/ REPROGRAM N/A 12/22/2019 NEUROSTIMULATOR PULSE GENERATOR/ TRANSMITTER, WITH INTRAOPERATIVE OR SUBSEQUENT PROGRAMMING performed by Lo Wagner MD at OR [facility] IMPLANT EPIDURAL NEUROELECTRODES N/A 12/22/2019 PERCUTANEOUS IMPLANTATION NEUROSTIMULATOR EPIDURAL performed by Lo Wagner MD at OR [facility] IMPLANT EPIDURAL NEUROELECTRODES N/A 01/21/2020 LAMINECTOMY POSTERIOR FOR IMPLANTATION NEUROSTIMULATOR ELECTRODES EPIDURAL performed by Tex Morgan MD at [facility] LAMINOTOMY, ADDL LUMBAR 1990 Reading RADICAL PROSTATE REMOVAL 2002 REMOVE LUMBAR SPINE LAMINA, 1 SEG N/A 12/19/2017 LAMINECTOMY FACETECTOMY AND FORAMINOTOMY LUMBAR performed by Tex Morgan MD at [place] [facility] Review of patient's allergies indicates: Allergen Reactions [...] if symptoms worsen or fail to improve. Marya Anne DO 8:35 AM 06/18/2024 documented in [...] all the time documented in this encounter Miscellaneous Notes * Addendum Note - Marya Anne DO - 06/18/2024 10:42 AM ESTAddended by: MARYA ANNE on: 06/18/2024 10:42 AM Modules accepted: Orders documented in this encounter Plan of Treatment Upcoming Encounters Date Type Department Care Team (Late st Contact Info) Description 10/15/2024 10:00 AM EDT Office Visit Family Practice 65 [facility] 293 [facility] [place] [address] Marya Anne DO 293 [place] [address] 10/15/2024 11:00 AM EDT Nutrition Services Nutrition Services 65 [facility] 293 [facility] [place] [address] Kristy Hicks RDN [address] [place] [address] 02/17/2025 9:20 AM EDT Laboratory Laboratory [facility] [address] [place] [phone] [place] [address] [facility] [place] [address] 02/24/2025 2:00 PM EDT Office Visit Hematology/Oncology [facility] [place] [address] [place] [phone] David Newton MD [address] [place] [address] 03/11/2025 8:00 AM EDT Imaging Radiology [address] [facility] [place] [address] 03/26/2025 8:00 AM EDT Office Visit Cardiology, [facility] [address] [facility] [place] [address] Germania Velasco CRNP 132 [facility] [place] [address] Pending Results Name Type Priority Associated Diagnoses [...] of right shoulder Expected: 06/18/2024, Expires: 07/19/2025 Scheduled Referrals Name Type Priority Associated Diagnoses Orde r Schedule PHYSICAL THERAPY REFERRAL OP Referral Within 10 days (routine) Pain in joint of right shoulder Ordered: 06/18/2024 Health Maintenance Due Date Last Done Comments Adult Wellness Visit 01/19/2024 01/18/2023 HbA1c 02/25/2025 02/26/2024, 04/10/2023, 06/11/2023, Additional history exists Albumin/Creatinine Ratio 02/27/2025 02/27/2022 GFR 04/21/2025 04/21/2024, 06/12/2023, 06/18/2023, Additional history exists Depression Screening 06/18/2025 [...] this encounter Medical Devices Implanted Type Area Shank Cutter Device Identifier Shelf Expiration Date Model / Serial / Lot Kit Pulse Generator - [id number] - [id number] Implanted:Qty: 1 on 01/21/2020 by Tex Morgan MD [place] [facility] N/A: Spine Thoracic [email or web address] 10/14/2021 ND-1160 / [id number] / Paddle Lead Coveredge - [id number] - [id number] Implanted:Qty: 1 on 01/21/2020 by Tex Morgan MD at [place] [facility] N/A: Spine Hyperpia 09/16/2021 [id number] / [id number] / Clik [place] - [id number] Implanted:Qty: 1 on 01/21/2020 by Tex Morgan MD at [place] [facility] N/A: Spine Thoracic Uppidy : PAIN MGMT 09/11/2021 [id number] / / [id number] documented as of this encounter Visit Diagnoses Diagnosis HTN, goal below 140/90- Primary Unspecified essential hypertension Dyslipidemia, goal LDL below 100 Other and unspecified hyperlipidemia Spinal stenosis of lumbar region with neurogenic claudication Spinal stenosis, lumbar region, with neurogenic claudication 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 No Care Teams Electric Meter Technician Relationship Specialty Start Date End Date Marya Anne DO 293 [place] [address] PCP - General Internal Medicine 12/21/23 documented as of this encounter"
--- OUTSIDE RECORDS SUMMARY | 2024-07-11 09:08 | External Medical Summary | Summary of Care ---
Author Name Unknown Organization [facility] Address [address] [place] [address] Phone [phone] Care Team Providers Care Safety And Occupational Health Manager Name Role Phone Guido Anne Ivonne VALDOVINOS Primary Care Provider [phone] Reason for Visit * Reason Onset Date Comments Forms Request 04/29/2024 Encounter Details Date Type Department Care Team (Late st Contact Info) Description 04/29/2024 Telephone Cardiology, [facility] [address] [facility] [place] [address] Germania Velasco CRNP [address] [facility] [place] [place] [address] Forms Request Allergies Active Allergy Reactions Criticality Noted Date Comments Adhesive Tape Rash 01/03/2018 Penicillins 04/21/2004 Hives documented as of this encounter (statuses as of 05/08/2024) Medications Medication Sig Dispensed Refills Start Date End Date Status CALCIUM 600-D 600-400 MG-UNIT PO TABS 2 tablets daily; unsure of dosage 12/01/2009 Active ASPIRIN 81 MG PO CHEW One pill by mouth once a day with food Active Coenzyme Q10 (COQ-10) 100 MG CAPS Take 100 mg by mouth daily. 06/23/2017 Active Probiotic Daily Oral Capsule Take 1 Capsule by mouth in the morning. Active Losartan Potassium 25 MG Oral Tablet (Cozaar)Indications:E ssential hypertension with goal blood pressure less than 140/90,Aneurysm of ascending aorta without rupture (HCC) TAKE ONE TABLET BY MOUTH EVERY MORNING 90 Tablet 3 09/17/2023 09/16/2024 Active Gabapentin 300 MG Oral Capsule (Neurontin)Indication s:Spinal stenosis of lumbar region without neurogenic claudication,Peripher al polyneuropathy Take 1 Capsule by mouth in the morning and 1 Capsule at noon and 1 Capsule before bedtime. 300 Capsule 3 10/15/2023 Active Metoprolol Succinate ER 25 MG Oral Tablet Extended Release 24 Hour (toPROL XL)Indications:Essent ial hypertension with goal blood pressure less than 140/90,Aneurysm of ascending aorta without rupture (HCC),Palpitations TAKE ONE-HALF TABLET BY MOUTH IN THE MORNING 50 Tablet 3 11/05/2023 11/04/2024 Active Chlorhexidine Gluconate 0.12 % Mouth/Throat Solution (Periogard) RINSE AND SWISH 15ML 1-2 TIMES DAILY FOR 1 MINUTE THEN SPIT OUT. 01/13/2024 Active Cyclobenzaprine HCl 10 MG Oral TabletIndications:Spi nal stenosis of lumbar region without neurogenic claudication Take 1 Tablet by mouth 3 times a day as needed for Muscle spasms. 60 Tablet 3 03/27/2024 Active Rosuvastatin Calcium 10 MG Oral Tablet (Crestor)Indications: Dyslipidemia, goal LDL below 100 Take 1 Tablet by mouth at bedtime. 30 Tablet 11 03/30/2024 Active oxyCODONE-Acetaminoph en 5-325 MG Oral Tablet (Percocet)Indications :Spinal stenosis of lumbar region without neurogenic claudication,S/P lumbar laminectomy Take 1 Tablet by mouth every 6 hours as needed for Pain, Severe. 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 Coronary artery calcification [...] 100 04/11/2016 Santana angioma 02/10/2013 Insomnia 10/18/2010 Overview: ICD-10 update of inactive term KNEE JOINT REPLACEMENT STATUS- Left 09/22/2009 History of prostate cancer 05/02/2003 Cancer Staging:Clinical stage from 05/28/2013:Stage IV(T1c, N0, M1b) - Signed by David Newton MD on 05/28/2013 Pathologic:Stage IV(T2c, N0, M1) - Signed by David Newton MD on 05/28/2013 documented as of this encounter (statuses as of 05/08/2024) Resolved Problems Problem Noted Date Diagnosed Date Resolved Date Peripheral polyneuropathy 07/19/2023 Anemia 12/19/2017 04/15/2018 Right sided abdominal pain 12/19/2017 0 01/03/2018 History of surgical procedure 12/19/2017 01/03/2018 Ascending aorta enlargement 03/15/2016 04/20/2016 Inflamed seborrheic keratosis 02/10/2013 04/15/2018 Other seborrheic keratosis 02/10/2013 1 Cutaneous skin tags 02/10/2013 04/15/20 18 MEDICATION USE AGREEMENT 12/20/201209/2020 Overview: Managed by Guido Anne DO. To view the Medication Usage Agreement, go to Action, Patient Files. Lumbosacral neuritis 11/18/2012 018 Annular tear of lumbar disc 05/20/2012 06/17/2018 [id number] Clinical Trial [id number] 04/12/2011 07/09/2013 Overview: Trial participant as of: [facility] [id number]: A Randomized, Phase III Study of Standard Dosing Versus Longer Dosing Interval of Zoledronic Acid in Metastatic Cancer Project #: [id number] PI Name: David Newton MD PI CRC Name: Monique Alfred CRC Contact PI or SKIVER OPERATOR regarding any serious medical event, ER visit, hospitalization, if new Rx given, or billing question [id number] Clinical Trial [id number] 04/12/2011 08/13/2013 Overview: Renamed per the [facility] for Medicare and Medicaid billing requirements to include Clinical Trial.gov number. Trial participant as of: [facility] [id number]: A Randomized, Phase III Study of Standard Dosing Versus Longer Dosing Interval of Zoledronic Acid in Metastatic Cancer Project #: [id number] PI Name: David Newton MD PI CRC Name: Monique Alfred [facility] Contact PI or SKIVER OPERATOR regarding any serious medical event, ER visit, hospitalization, if new Rx given, or billing question [id number] Clinical Trial*[id number] 01/05/2011 04/12/2011 Overview: Trial participant as of: [facility] [id number]: A Randomized, Phase III Study of Standard Dosing Versus Longer Dosing Interval of Zoledronic Acid in Metastatic Cancer Project #: [id number] PI Name: David Newton MD PI CRC Name: Monique Alfred CRC Contact PI or SKIVER OPERATOR regarding any serious medical event, ER visit, hospitalization, if new Rx given, or billing question Secondary malignant neoplasm of bone 01/04/2011 10/15/2023 NONALLERGIC RHINITIS 06/07/2006 018 Cough 06/07/2006 06/17/2018 Spinal stenosis, cervical region 05/18/2006 12/19/2017 Esophageal reflux 12/15/2005 11/25/2019 documented as of this encounter (statuses as of 05/08/2024) Immunizations Name Administration Dates Next Due COVID-19 mRNA, LNP-s, No Pre serve, 2-Dose Series (Moderna) 08/30/2020,07/26/2020 COVID-19, MRNA-LNP, PF, 30 M CG/0.3 mL, 12 YRS AND ABOVE, [facility] 04/07/2024,12/26/2023 COVID-19, MRNA-LNP, PF, 50 M CG/0.5 [...] Assigned at Male 10/16/2018 7:31 AM EDT Gender Identity Male 10/16/2018 7:31 AM EDT Sexual Orientation Straight 10/16/2018 7: 31 AM EDT Job Start Date Occupation Industry Not on file Not on file Not on file documented as of this encounter Functional Status Functional Status Response Date of Assess ment Are you deaf or do you have serious difficulty h earing? No 01/21/2020 Are you blind or do you have serious difficulty seeing, even when wearing glasses? No 01/21/2020 Do you have serious difficul ty walking or climbing stairs? (5 years old or older) No 01/21/2020 Do you have difficulty dress ing or bathing? (5 years old or older) No 01/21/2020 Because of a physical, menta l, or emotional condition, do you have difficulty doing errands alone such as visiting a doctor s office or shopping? (15 years old or older) No 01/21/20 20 Cognitive Status Response Date of Assessm ent Because of a physical, menta l, or emotional condition, do you have serious difficulty concentrating, remembering, or making decisions? (5 years old or older) No 01/21/2020 documented as of this encounter Miscellaneous Notes * Telephone Encounter - Stoney Allred OSA - 04/29/2024 12:24 PM EDT Person calling: [facility] Relationship to patient: Provider Phone/Fax to return call: [phone] Reason for call(brief): Return call Provider Name: Germania Velasco Detailed message to office: Stated pt surgery is cancelled and pre op appt is no longer needed. * Telephone Encounter - Esperanza Briscoe CMA - 04/29/2024 11:55 AM EDT Received pre-op optimization form for this patient from [facility]. Surgery: Spinal cord stimulator battery exchange 05/19/2024 [facility] Patient canceled pre-op appt. Pt's appt in March did not address surgery as it was not scheduled at that time. Called [facility] to inquire if surgery was canceled. documented in this encounter Plan of Treatment Upcoming Encounters Date Type Department Care Team (Late st Contact Info) Description 06/18/2024 8:00 AM EST Office Visit Family Practice [address] [facility] [address] [place] [address] Guido Anne DO [address] [place] [address] 06/18/2024 10:00 AM EST Nutrition Services Nutrition Services 65 [facility] [address] [place] [address] Kristy Hicks RDN [address] [place] [address] 02/17/2025 9:20 AM EDT Laboratory Laboratory [facility] [address] [place] [phone] [facility] [address] [place] [address] 02/24/2025 2:00 PM EDT Office Visit Hematology/Oncology [facility] [address] [place] [address] David Newton MD 200 [place] [address] 03/11/2025 8:00 AM EDT Imaging Radiology [address] 132 [facility] [place] [address] 03/26/2025 8:00 AM EDT Office Visit Cardiology, [facility] [address] [facility] [place] [address] Germania Velasco CRNP 132 [facility] [place] [address] Health Maintenance Due Date Last Done Comments Adult Wellness Visit 01/19/2024 01/18/2023 Depression Screening 06/10/2024 06/10/2023 HbA1c 02/25/2025 02/26/2024, 04/10/2023, 06/11/2023, Additional history exists Albumin/Creatinine Ratio 02/27/2025 02/27/2022 GFR 04/21/2025 04/21/2024, 0612/2023, 06/18/2023, Additional history exists DTap/Tdap Vaccines (3 - [...] this encounter Medical Devices Implanted Type Area Electrical Automation Engineer Device Identifier Shelf Expiration Date Model / Serial / Lot Kit Pulse Generator - [id number] - [id number] Implanted:Qty: 1 on 01/21/2020 by [place] [facility] [place] Spine Thoracic [facility] 10/14/2021 [id number] / [id number] / Paddle Lead C[employer]ge - [id number] - [id number] Implanted:Qty: 1 on 01/21/2020 by Tex Morgan MD [place] [facility] [place]: Spine Thoracic [facility] 09/16/2021 [id number] / [id number] / [employer] [place] - [id number] Implanted:Qty: 1 on 01/21/2020 by Tex Morgan MD [place] [facility] [place]: Spine Thoracic [employer] : PAIN MGMT 09/11/2021 [id number] / / [id number] documented as of this encounter Advance Directives [...] Power of Attor angle? No Care Teams Safety And Occupational Health Manager Relationship Specialty Start Date End Date Guido Anne DO [address] [place] [address] PCP - General Internal Medicine 12/21/23 documented as of this encounter
--- OUTSIDE RECORDS SUMMARY | 2024-07-11 09:08 | External Medical Summary | Summary of Care ---
Author Name Unknown Organization [facility] Address [address] [place] [address] Phone [phone] Care Team Providers Care Lining Stitcher Name Role Phone TjdeanGuido DO Primary Care Provider [phone] Reason for Visit * Reason Comments Outpatient Testing Encounter Details Date Type Department Care Team (Late st Contact Info) Description 05/27/2024 8:20 AM EST Laboratory Laboratory, [facility] [address] [place] [phone] [facility] [address] [place] [address] Sensory neuropathy Allergies Active Allergy Reactions Criticality Noted Date Comments Adhesive Tape Rash 01/03/2018 Penicillins 04/21/2004 Hives documented as of this encounter (statuses as of 05/27/2024) Medications CALCIUM 600-D 600-400 MG-UNIT PO TABS [...] BY MOUTH EVERY MORNING 90 Tablet 3 03/18/2024 10:55 AM EDT 4 09/17/19 25 Active Gabapentin 300 MG [...] as of this encounter (statuses as of 05/27/2024) Active Problems Problem Noted Date Diagnosed Date [...] as of this encounter (statuses as of 05/27/2024) Resolved Problems Problem Noted Date Diagnosed Date [...] Annular tear of lumbar disc 05/20/2012 06/17/2018 [id number] Clinical Trial [id number] 04/12/2011 07/09/2013 Overview (04/12/2011): Trial participant as of: [facility] [id number]: A Randomized, Phase III Study of Standard Dosing Versus Longer Dosing Interval of Zoledronic Acid in Metastatic Cancer Project #: [id number] PI Name: David Newton MD PI CRC Name: Monique Alfred [facility] Contact PI or MEDICAL OFFICE COORDINATOR regarding any serious medical event, ER visit, hospitalization, if new Rx given, or billing question [id number] Clinical Trial [id number] 04/12/2011 08/13/2013 Overview: Renamed per the Centers for Medicare and Medicaid billing requirements to include Clinical Trial.gov number. Trial participant as of: [facility] [id number]: A Randomized, Phase III Study of Standard Dosing Versus Longer Dosing Interval of Zoledronic Acid in Metastatic Cancer Project #: [id number] PI Name: David Newton MD PI CRC Name: Monique Alfred [facility] Contact PI or MEDICAL OFFICE COORDINATOR regarding any serious medical event, ER visit, hospitalization, if new Rx given, or billing question [id number] Clinical Trial*[id number] 01/05/2011 04/12/2011 Overview (01/05/2011): Trial participant as of: [facility] [id number]: A Randomized, Phase III Study of Standard Dosing Versus Longer Dosing Interval of Zoledronic Acid in Metastatic Cancer Project #: [id number] PI Name: David Newton MD PI CRC Name: Monique Alfred [facility] Contact PI or MEDICAL OFFICE COORDINATOR regarding any serious medical event, ER visit, hospitalization, if new Rx given, or billing question Secondary malignant neoplasm of bone 01/04/2011 10/15/2023 NONALLERGIC RHINITIS 06/07/2006 018 Cough 06/07/2006 06/17/2018 Spinal stenosis, cervical region 05/18/2006 12/19/2017 Esophageal reflux 12/15/2005 11/25/2019 documented as of this encounter (statuses as of 05/27/2024) Immunizations Name Administration Dates Next Due COVID-19 [...] 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 Not on [...] 2:44 PM YESSICAT Shirley Hess RN * Because of a [...] Entry Date Author No 01/21/2020 2:44 PM Shirley Torrez RN documented in this encounter Plan of Treatment Upcoming Encounters Date Type Department Care Team (Late st Contact Info) Description 06/18/2024 8:00 AM EST Office Visit Family Practice 65 [facility] [address] [place] [address] Guido Anne DO [address] [place] [address] 06/18/2024 10:00 AM EST Nutrition Services Nutrition Services 65 [facility] [address] [place] [address] Kristy Hicks RDN [address] [place] [address] 02/17/2025 9:20 AM EDT Laboratory Laboratory [facility] [address] [place] [phone] [facility] [address] [place] [address] 02/24/2025 2:00 PM EDT Office Visit Hematology/Oncology [facility] [address] [place] [address] David Newton MD [address] [place] [address] 03/11/2025 8:00 AM EDT Imaging Radiology [address] 132 [facility] [place] [address] 03/26/2025 8:00 AM EDT Office Visit Cardiology, [facility] 132 [facility] [place] [address] Germania Velasco CRNP [address] [place] [address] Pending Results Name Type Priority Associated Diagnoses Date /Time VITAMIN B6, PLASMA Lab Routine Sensory neuropathy 05/27/2024 8:23 AM EST Health Maintenance Due Date Last Done Comments Adult Wellness Visit 01/19/2024 01/18/2023 Depression Screening 06/10/2024 06/10/2023 HbA1c 02/25/2025 02/26/2024, 0410/2023, 06/11/2023, Additional history exists Albumin/Creatinine Ratio 02/27/2025 02/27/2022 GFR 04/21/2025 04/21/2024, 06/12/2023, 06/18/2023, Additional history exists DTap/Tdap Vaccines (3 [...] this encounter Medical Devices Implanted Type Area Pulp[employer] Buyer Device Identifier Shelf Expiration Date Model / Serial / Lot Kit Pulse Generator - [id number] - [id number] Implanted:Qty: 1 on 01/21/2020 by Tex Morgan MD [place] [facility] [place]: Spine Thoracic [employer] 10/14/2021 [id number] / [id number] / Paddle Lead Coveredge - [id number] - [id number] Implanted:Qty: 1 on 01/21/2020 by Tex Morgan MD [place] [facility] [place]: Spine Thoracic [employer] 09/16/2021 [id number] / [id number] / [employer] [place] - [id number] Implanted:Qty: 1 on 01/21/2020 by Tex Morgan MD [place] [facility] [place]: Spine Thoracic [employer] : PAIN MGMT 09/11/2021 [id number] / / [id number] documented as of this encounter Visit Diagnoses Diagnosis Sensory neuropathy Unspecified hereditary and idiopathic peripheral neuropathy documented in this encounter Advance Directives * [...] Power of Attor angle? No Care Teams Lining Stitcher Relationship Specialty Start Date End Date Guido Anne DO [address] [place] [address] PCP - General Internal Medicine 12/21/23 documented as of this encounter
--- OUTSIDE RECORDS SUMMARY | 2024-07-11 09:08 | External Medical Summary ---
Author Name Unknown Address Unknown Organization : Laboratory Report Ordering Provider Test Date Status TARIQ HERMOSILLO 05/27/2024 08:23:36 Final Observation Date Value Abnormality Reference (Units ) Status Pyridoxal phosphate [Mass/volume] in Serum or Plasma 05/27/2024 08:23:36 19.2 2.1-21.7 (ng/mL) Final Vitamin supplementation with in 24 hours prior to
blood draw may affect the accuracy of the results.
This test was developed and its analytical performance
characteristics have been determined by [facility] [place], [place]. It has
not been cleared or approved by the U.S. Food and Drug
Administration. This assay has been validated pursuant
to the CLIA regulations and is used for clinical
purposes.

Test Performed at:
[facility]
[address] [facility] [place] [address]
John Dangeol M.D., Ph.D.,Director of Laboratories Performing Location
--- OUTSIDE RECORDS SUMMARY | 2024-07-11 09:08 | External Medical Summary ---
Author Name Unknown Address Unknown Organization K01:[facility] [place] [address] [place] [id number] Laboratory Report Ordering Provider Test Date Status DERRICK MALHOTRA 06/18/2024 08:49:14 Final Observation Date Value Abnormality Reference (Units ) Status HbA1C 06/18/2024 08:49:14 6.1 Above high normal 4. 0-5.6 (%) Final The use of HbA1c to monitor glycemic status is based on normal hemoglobin and HbA composition. This test should not be used in patients with abnormal hemoglobin that affects the half life of the red blood cell or the in vivo glycation rates. Glucose, estimated average 06/18/2024 08:49:14 128 Above high normal <126 (mg/dL) Hardik pinto Performing Location [facility] - [address] [place] [id number]
[2024-07-11 09:11] LABS: Appearance Urine Clear (Clear); Bilirubin Urine Negative (Negative); Blood Urine Negative (Negative); Color Urine Yellow; Glucose Urine UA Negative (Negative); Ketones Urine Negative (Negative); Leukocyte Esterase Urine Negative (Negative); Nitrite Urine Negative (Negative); Protein Urine Negative (Negative); Specific Gravity Urine 1.008 (1.000-1.030); Urobilinogen Urine Negative (Negative); pH Urine 7.5 (4.5-7.5)
--- NOTE | 2024-07-11 10:52 | History & Physical Report ---
Date of Service July 11, 2024 Assessment & Plan (1) Syncope: (2) Postlaminectomy syndrome of lumbar region: (3) Spinal cord stimulator status: (4) Ascending aortic aneurysm: (5) HTN (hypertension): (6) Dyslipidemia: (7) Prostate cancer: Plan Syncopal episode Ascending aorta aneurysm HTN -Observation on telemetry -2D echo-Question if aortic root dilation is worsening syncopal symptoms -Follows with [facility] cardiology as an outpatient, PAULINE Xavier -Pain medications for back pain/shoulder pain status post fall several weeks ago include Percocet which he took around midnight last evening because nerve stimulator was not effective encough- hold narcotics ( Pt only uses intermittently.) No longer on gapabentin. - Not bradycardia with HR of 50s at bedside and BP of 120-140. Will hold metoprolol succ 12.5 mg and losartan 25 mg this morning with acute syncopal episode. - Weight loss of 20 lbs in past 4 months intentionally due to being told he was prediabetic in Mar. Possible that he does not need as much antihypertensive medications. 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 Please see attending documentation for corrections and/or additions. History of Present Illness Chief Complaint: Syncopal episode Primary Care Provider: Guido Anne, This is an 79-year-old male with PMHx of prostate cancer, GERD, spinal stenosis, lumbar disc disease, prediabetes, lumbar laminectomy x 2, spinal cord stimulator implant, thoracic aortic aneurysm, HTN, prediabetes, peripheral neuropathy who presents to the hospital with a near syncopal event. He has been intermittently taking Percocet for his back and shoulder as the first week of June he fell off a step stool ladder and injured his right shoulder. He also has a spinal nerve stimulator which he uses regularly since back [facility] many years ago. Last evening, he finished watching [employer] football game late in the evening and took a Percocet afterwards. This morning he woke up around 0600 and states that he was standing to urinate, when he acutely became dizzy/lightheaded, lost his balance and woke up looking at a doorknob on the floor. He states that he hurt his right shoulder, his right knee and his right hand. He crawled several feet to try to get back to the bedroom. His was in a different room upstairs and heard him fall and called EMS and was brought here to the hospital. His Nathalie, is present with him at bedside and supports the history. She also notes that due to his prediabetes they have significantly changed their diet with reduction in carbohydrate, sugars, cookies/sweets/breads and that he has lost 20 pounds since March 2024 intentionally. He did not take any of his morning medications today which includes metoprolol succinate 12.5 mg and losartan 25 mg. On monitor here he has a heart rate around 50, blood pressure is systolic 120. He denies any symptoms at rest. Patient has had CXR chest, CT head, CT cervical spine and thoracic spine which were all essentially negative for acute findings. Due to his syncopal etiology and thoracic aortic root aneurysm concern for dilation would warrant a echocardiogram of the heart. He will be admitted to medicine for further evaluation. Allergies Allergy/AdvReac Type Severity Reaction Status Date / Time Penicillins Allergy Mild Hives Verified 07/11/24 08:38 Home Medications Medication Instructions Recorded Confirmed Type coenzyme Q10 100 mg capsule 100 mg PO QAM 06/02/19 07/11/24 History (CoQ-10) losartan 25 mg tablet 25 mg PO QAM 06/02/19 07/11/24 History magnesium 200 mg tablet 200 mg PO HS 09/01/19 07/11/24 History metoprolol succinate 25 mg capsule 12.5 mg PO QAM 09/01/19 07/11/24 History sprinkle, ext. release 24 hr aspirin 81 mg capsule 81 mg PO QAM 04/18/24 07/11/24 History calcium 600 mg (as 2 tab PO QPM 04/18/24 07/11/24 History carbonate)-vitamin D3 5 mcg (200 unit) tablet lactobacillus combination no.4 3 3,000 mmu cells PO DAILY ##0 04/18/24 07/11/24 History billion cell capsule (Probiotic) rosuvastatin 10 mg tablet 10 mg PO HS 04/18/24 07/11/24 History oxycodone-acetaminophen 5 mg-325 1 tab PO Q6H PRN Pain 07/11/24 07/11/24 History mg tablet Past Med/Surg History Problem List (Updated 07/11/24 @ 12:53 by Flaquito Slaughter DO) Acute thoracic myofascial strain (Acute) Cervical strain, acute (Acute) Head injury (Acute) Syncope (Acute) Postlaminectomy syndrome of lumbar region Hip bursitis, left IT band syndrome Right knee DJD Medical History Spinal cord stimulator status HTN (hypertension) Per [facility] cardio records Dyslipidemia Ascending aortic aneurysm CT chest 03/2024: Aneurysmal dilatation of the thoracic aorta, 4.8 cm Follows with [facility] cardio Prostate cancer Dx 2002, s/p prostatectomy, XRT 2007 Surgical History S/P insertion of brain-responsive neurostimulation device SCS 2020 History of esophagogastroduodenoscopy (EGD) Hx of colonoscopy History of total left knee replacement 2009 S/P prostatectomy Social History Smoking Status: Never smoker Tobacco Type: Cigarettes Second Hand Exposure: No; Do You Dip or Chew Tobacco: No; Tobacco Cessation Education Requested by Patient: No Hx Alcohol Use: No Hx Substance Use: No Preferred Language: Uzbek Communication Ability: Effective Staff Nurse Required: No Beliefs That Will Affect Care: None Current Living Situation: Spouse Other Information That Helps Us Care for You: No Feels Safe at Home: Yes Safety Concerns: Feels Safe At This Time Assistive Devices: None Review of Systems Review of Systems: Constitutional: No fever, sweats or chills, no dizziness or lightheadedness Eyes: No diplopia, no worsening or blurred vision ENT: normal hearing, no trouble swallowing Respiratory: No cough, sputum, dyspnea at rest or on exertion Cardiovascular: No chest pain, tightness or palpitations Abdomen: No pain, nausea, vomiting, diarrhea or constipation Musculoskeletal: Right shoulder pain, no other joint pain or obvious area of injury, no calf pain, swelling Neurologic: As per HPI,No weakness, numbness/tingling, or balance problems Psychiatric: No anxiety or depression Skin: No rash or itch Physical Exam Physical Exam: General: awake, alert, no apparent distress, weight elderly male Head: Normocephalic, atraumatic ENT: PERRL, EOMI, no pharyngeal exudate, mucous membranes moist Chest: Clear to auscultation, on room air, no adventitious breath sounds Cardiac: Sinus bradycardia with heart rate around 50, no murmur, no JVD, normal peripheral pulses, good capillary refill Abdominal: NABS x 4 quadrants, soft, nondistended, nontender to palpation, no rebound or guarding Extremities: Normal inspection, no peripheral edema or erythema, calfs nontender to palpation Psych: Normal mood and affect Neuro: AAO x 3, strength intact bilaterally and rated 5/5, full range of motion in right and left arm, no motor deficits, speech is clear, no peripheral sensory deficits Results & Data Results & Data Vital Signs (Past 12 Hours) Vital Signs Temp Pulse Resp BP Pulse Ox O2 Del Method 07/11/24 10:02 60 18 140/86 96 07/11/24 09:30 55 L 12 127/73 96 07/11/24 08:18 56 L 07/11/24 08:03 62 18 141/77 H 96 07/11/24 07:25 54 L 14 99 Room Air 07/11/24 07:13 54 L 14 156/75 H 100 Room Air 07/11/24 07:08 55 L 14 100 Room Air 07/11/24 07:08 36.6 C 55 L 14 156/75 H 100 Room Air Laboratory Results 07/11/24 07/11/24 08:51 07:20 WBC 5.48 RBC 4.41 L Hgb 13.1 L Hct 38.6 L MCV 87.5 MCH 29.7 MCHC 33.9 RDW Std Deviation 41.2 RDW Coeff of [place] 12.8 Plt Count 229 MPV 8.9 L Immature Gran % (Auto) 0.4 Neut % (Auto) 50.5 Lymph % (Auto) 36.3 [place] % (Auto) 9.9 Eos % (Auto) 2.0 Baso % (Auto) 0.9 Neut # (Auto) 2.77 Lymph # (Auto) 1.99 [place] # (Auto) 0.54 Eos # (Auto) 0.11 Baso # (Auto) 0.05 Immature Gran # (Auto) 0.02 PT 11.0 INR 1.0 APTT 25 PTT Ratio 0.9 Sodium 140 Potassium 3.8 Chloride 105 Carbon Dioxide 28 Anion Gap 7 BUN 18 Creatinine 0.94 Est Cr Clr Drug Dosing 74.2 eGFR 81.95 BUN/Creatinine Ratio 19.1 Glucose 103 H Calcium 9.3 Magnesium 2.1 Total Bilirubin 0.5 AST 16 ALT 10 Alkaline Phosphatase 58 Troponin I High Sens 4.2 Total Protein 6.9 Albumin 4.3 Globulin 2.6 Albumin/Globulin Ratio 1.7 Urine Color Yellow Urine Appearance Clear Urine pH 7.5 Ur Specific [place] 1.008 Urine Protein Negative Urine Glucose (UA) Negative Urine Ketones Negative Urine Blood Negative Urine Nitrite Negative Urine Bilirubin Negative Urine Urobilinogen Negative Ur Leukocyte Esterase Negative Diagnostic Findings Cervical Spine CT 07/11/24 07:19 CT OF THE CERVICAL SPINE WITHOUT CONTRAST CLINICAL HISTORY: fall COMPARISON STUDY: Cervical spine CT September 14, 2020. TECHNIQUE: Helical axial images of the cervical spine were obtained without IV contrast. Sagittal and coronal reconstructions were viewed. Automated exposure control was utilized for the study. A dose lowering technique was utilized adhering to the principles of ALARA. FINDINGS: Alignment of the cervical spine is anatomic. Vertebral body heights are maintained. No acute cervical spine fracture or subluxation is present. There is no prevertebral edema. Facet joints are intact. The inferior aspect of C7 is not well-visualized on this exam but is visualized on the thoracic spine CT. There is no fracture within the thoracic spine. Moderate multilevel disc space narrowing, endplate osteophytosis and facet arthrosis is present. There are moderate degenerative changes at the C1-C2 articulation. IMPRESSION: No acute cervical spine fracture or subluxation. ACT 112: Negative or not required by law. Electronically signed by: Pro Steele M.D. 07/11/2024 8:27 AM Chest X-Ray 07/11/24 07:19 EXAM: XR chest 1V portable CLINICAL HISTORY: FALL-RIGHT SHOULDER PAIN JMT TECHNIQUE: An X-ray image of the chest is obtained in AP projection. COMPARISON: No prior studies are available for comparison. FINDINGS: Pulmonary Parenchyma: Slight prominence of bronchovascular markings was noted bilaterally. Findings could be related to mild pulmonary congestion. No focal consolidation. No evidence of pleural effusion or pneumothorax. Heart and Mediastinum: Borderline cardiomegaly. No mediastinal widening or masses. No hilar or mediastinal lymphadenopathy. Bony Thorax: The bony thorax appears intact without acute fractures or deformities. Soft Tissues: Soft tissues overlying the chest wall are unremarkable. A thoracic spinal stimulator was observed. IMPRESSION: 1. Slight prominence of bronchovascular markings was noted bilaterally. Findings could be related to mild pulmonary congestion. Would recommend clinical correlation. 2. Borderline cardiomegaly. Electronically signed by Luis A Ch 07-11-2024 08:[address] 07/11/24 07:19 CT head/brain wo con CLINICAL HISTORY: syncope. TECHNIQUE: Multiple axial CT images of the head were obtained without contrast. A dose lowering technique was utilized adhering to the principles of ALARA. COMPARISON: 09/14/2020 FINDINGS: There are stable mild globus pallidus calcifications, unremarkable in this age group. No intracranial hemorrhage seen. No mass effect, midline shift, or hydrocephalus. No skull fracture seen. Visualized paranasal sinuses and mastoid air cells are clear. IMPRESSION: No acute findings. ACT 112: Negative or not required by law. The above report was generated using voice recognition software. It may contain grammatical, syntax or spelling errors. Electronically signed by: Tex Suarez M.D. 07/11/2024 8:27 AM Shoulder X-Ray 07/11/24 07:19 EXAM: XR shoulder RT min 2V routine CLINICAL HISTORY: FALL-RIGHT SHOULDER PAIN JMT TECHNIQUE: X-ray images of the right shoulder were obtained in anteroposterior (AP) and Y-view projections. COMPARISON: No prior studies available for comparison. FINDINGS: Bone Structure: Reduced mineralization of the imaged bony structures seen suggests osteopenia. Focal calcific density seen near the greater tuberosity of the humerus likely suggests calcific tendinitis of the supraspinatus tendon, avulsion fracture fragment appears less likely. Bone structure is normal and aligned. No evidence of fracture or dislocation. Humeral head is properly positioned in the glenoid fossa. No convincing rib fracture seen Joint Spaces: Tiny marginal osteophytes seen at the glenoid or scapula with patchy sclerosis at the superior lateral surface of head of humerus, overall represents mild degenerative changes. Glenohumeral spaces are normal. No evidence of joint effusion or subluxation. Small marginal osteophyte seen at the acromioclavicular joint suggesting Acromioclavicular arthropathy within adjacent ossific body, avulsed fracture fragment less likely. Soft Tissues: No soft tissue swelling seen. IMPRESSION: 1. Glenohumeral and acromioclavicular arthropathy/degenerative changes seen, as described above. 2. No acutely displaced fracture noted. 3. Supraspinatus calcific tendinitis and acromioclavicular degenerative loose body seen, avulsed fracture fragments at these sites appear unlikely. 4. Osteopenia. 5. Clinical correlation advised, further evaluation by CT scan/MRI right shoulder may be obtained if clinically indicated. Disclaimer: A subtle bone abnormality or fracture may not be readily apparent on X-rays, thus clinical correlation and further imaging including follow-up CT, MRI, or follow-up X-rays are advised as needed. Electronically signed by Luis A Ch 07-11-2024 08:[address] 07/11/24 07:22 CT thoracic spine wo con HISTORY: 79 years-old Male fall acute mid back pain status post fall COMPARISON: Chest radiograph of same day, MRI thoracic spine 12/11/2012 TECHNIQUE: Multiple axial CT images of the thoracic spine were obtained without IV contrast. A dose lowering technique was used consistent with the principals of ALARA. FINDINGS: [id number] multilevel intervertebral disc space narrowing with moderate anterior bridging osteophytosis and [id number] facet arthrosis. Partially imaged neurostimulator leads appear intact and are seen entering the central canal at T8-T9 with distal tip terminating at T6-T7. No acute fracture, subluxation or endplate erosion. Suboptimal evaluation of the central canal and neural foramen by CT technique. No high-grade central canal stenosis identified. No paravertebral edema. Nonobstructing right nephrolithiasis. Cardiomegaly with extensive coronary artery calcifications. The imaged lung morris are generally clear. Mild pleural parenchymal scarring of the lung apices. Mild pulmonary emphysema with bronchial wall thickening. Mild fusiform dilation of the ascending thoracic aorta measures up to 4 cm. IMPRESSION: No acute thoracic spine fracture or subluxation identified. ACT 112: Negative or not required by law. The above report was generated using voice recognition software. It may contain grammatical, syntax or spelling errors. Electronically signed by: Satish Christianson M.D. 07/11/2024 8:41 AM ECG Additional Comments: Reviewed personally, no acute ST-T wave changes or signs of ischemia Code Status & VTE Plan Code Status Full code-discussed with the patient and his at bedside Supervising Physician Co-Signing Physician Notes Attending Addendum: Case reviewed with the advanced practitioner. I have personally performed a history and physical examination on the patient. I have reviewed the advanced practitioner's documentation on the date of service referenced in note, and I agree with, and take responsibility for the plan of care. please refer to her notes for full details patient seen and examined, records reviewed by myself as well on exam, patient seen resting in bed, comfortable in good spirits states he feels fine overall except somewhat weak no active chest pain, shortness of breath, dizziness no recurrence of syncope/presyncope no other symptoms VS noted and reviewed oriented x3, not in distress, speaks in sentences with no effort nor accessory muscle use normal rate, regular rhythm, no murmurs clear breath sounds bilaterally non distended, soft, nontender no bipedal edema, erythema, warmth no neuro deficits all labs, imaging noted and reviewed ASSESSMENT AND PLAN> SYNCOPE likely vasovagal reflex occurred after urination CT head: no acute findings r/o Orthostasis hold Losartan, patient lost 20lbs with diet, for the past 3 months ortho VS r/o arrhythmia EKG showing sinus adán, HR 55, with 1st degree av block monitor in Telemetry hold Metoprolol history of ascending aorta aneurysm echo ordered metoprolol held as per above other diagnoses and plan of care as per advanced practitioner's notes Kip Anand MD (1) Syncope Syncope type: unspecified Qualified Code(s): R55 - Syncope and collapse
[2024-07-11] MEDS ORDERED: ONDANSETRON INJ 2 MG/ML 2 ML VIAL IV PRN (13:09)
--- NOTE | 2024-07-11 17:40 | Electrocardiogram Report ---
Test Reason : Blood Pressure : */* mmHG Vent. Rate : 55 BPM Atrial Rate : 55 BPM P-R Int : 236 ms QRS Dur : 100 ms QT Int : 470 ms P-R-T Axes : 6 -36 19 degrees QTcB Int : 449 ms Sinus bradycardia with 1st degree A-V block Left axis deviation Abnormal ECG When compared with ECG of 12-Mar-2016 18:49, No significant change was found Confirmed by Yuriy Abernathy ([id number]) on 07/11/2024 5:39:57 PM Referred By: REFERRED SELF Confirmed By: Yuriy Abernathy
[2024-07-11] MEDS: CALCIUM 600MG + VIT D 400 IU TAB PO SCH (20:36)
[2024-07-11] MEDS: ROSUVASTATIN CALCIUM 10 MG TAB PO SCH (20:36)
[2024-07-11] MEDS: ACETAMINOPHEN 325 MG TAB PO PRN (20:37)
[2024-07-12 07:57] VITALS: BP 128/80; RESP 19; TEMP 98.2; O2SAT 93
[2024-07-12] MEDS: ASPIRIN 81 MG ECTAB PO SCH (08:45)
[2024-07-12] MEDS: ENOXAPARIN INJ 40 MG/0.4 ML SYR SQ SCH (08:45)
--- NOTE | 2024-07-12 08:48 | Discharge Summary ---
Discharge Summary Date of Service July 12, 2024 Principal Dx & Hospital Course #1 = Principal Diagnosis (1) Syncope: (2) Postlaminectomy syndrome of lumbar region: (3) Spinal cord stimulator status: (4) Ascending aortic aneurysm: (5) HTN (hypertension): (6) Dyslipidemia: (7) Prostate cancer: Notes For Next Care Provider Medication Changes From Visit We are going to stop his Toprol-XL Admission HPI Per Admitting Provider This is an 79-year-old male with PMHx of prostate cancer, GERD, spinal stenosis, lumbar disc disease, prediabetes, lumbar laminectomy x 2, spinal cord stimulator implant, thoracic aortic aneurysm, HTN, prediabetes, peripheral neuropathy who presents to the hospital with a near syncopal event. Patient states that he got up to go to the bathroom and after around 1 minute he got dizzy and passed out, he was found by his spouse and he thinks that he was out for short period of time, no report of fogginess or headache afterwards, no report of head injury, no obvious report or documentation of any tongue biting or loss of bladder control. Overnight monitoring was reviewed with nursing staff which did not show any finding, echocardiogram here showed normal ejection fraction 55 to 60%, his previously known aortic aneurysm is 4.4 and this is being followed up as outpatient. His cardiac enzyme remained unremarkable, we did orthostatic and he was not orthostatic. His EKG showed first-degree AV block and some bradycardia, I recommended patient to go off Toprol-XL that he takes 12.5 mg daily. At this point I will let him go home with this change of medications, if episodes of this kind happens again, he would need Holter monitoring or event monitoring to see if he has any underlying extreme bradycardia or any other dysrhythmia causing this. I told him to communicate this with his structural technician as well. Updated Medication List Medication Instructions Recorded Confirmed Type coenzyme Q10 100 mg capsule 100 mg PO QAM 06/02/19 07/11/24 History (CoQ-10) losartan 25 mg tablet 25 mg PO QAM 06/02/19 07/11/24 History magnesium 200 mg tablet 200 mg PO HS 09/01/19 07/11/24 History aspirin 81 mg capsule 81 mg PO QAM 04/18/24 07/11/24 History calcium 600 mg (as 2 tab PO QPM 04/18/24 07/11/24 History carbonate)-vitamin D3 5 mcg (200 unit) tablet lactobacillus combination no.4 3 3,000 mmu cells PO DAILY ##0 04/18/24 07/11/24 History billion cell capsule (Probiotic) rosuvastatin 10 mg tablet 10 mg PO HS 04/18/24 07/11/24 History oxycodone-acetaminophen 5 mg-325 1 tab PO Q6H PRN Pain 07/11/24 07/11/24 History mg tablet Hospital Stay Data Consultations 07/11/24 10:43 ED Decision to Admit Stat Diagnostic Imagining Performed 07/11/24 07:19 CT cervical spine wo con Stat CT head/brain wo con Stat 07/11/24 07:22 CT thoracic spine wo con Stat Pending Results Patient Have Any Pending Studies at Discharge: No Discharge Instructions Given to Patient (Per Discharging Provider) Patient is recommended to be very careful upon changing positions from sitting to standing, if he feels dizzy, he has to wait for some time before started walking. Patient has to remain adequate amount of hydration every day. Total Time Total Time Spent Total Time Spent (In Minutes): More than 35 minutes
[2024-07-12] MEDS ORDERED: NON-FORMULARY MEDICATION (Coenzyme Q10 [Coq-10] 100 mg capsule) PO SCH (09:00)
[2024-07-12 09:36] VITALS: PULSE 78
== END 2024-07-12 10:22 | disposition home or self-care (01) ==
LOC: ED 07:04 → 2E 07:04